=== PATIENT | female | born 1975 | race Caucasian/White ===

== ENCOUNTER 2023-03-22 07:29 | Outpatient (OUT) | payer MEDICARE, MEDICAID, SELFPAY ==
[2023-03-22 08:16] LABS: Microalbumin Urine Random <1.3 mg/dL (<=30.0)
[2023-03-22 08:26] LABS: Basophils Percent Auto 0.5 % (0.2-2.0); Eosinophils Absolute Auto 0.2 10^3/uL (0.0-0.7); Eosinophils Percent Auto 2.7 % (0.9-7.0); Hematocrit 41.4 % (36.0-48.0); Hemoglobin 13.5 g/dL (12.0-16.0); Immature Granulocytes Abs Auto 0.03 10^3/uL (0.00-0.03); Immature Granulocytes Pct Auto 0.5 % (0.0-0.5); Lymphocytes Absolute Auto 2.1 10^3/uL (1.2-3.8); Lymphocytes Percent Auto 31.6 % (20.5-60.0); Mean Corpuscular HGB Conc 32.6 g/dL (29.9-35.2); Mean Corpuscular Hemoglobin 28.1 pg (26.7-34.0); Mean Corpuscular Volume 86.1 fL (81.0-99.0); Mean Platelet Volume 9.9 fL (9.5-13.5); Monocytes Absolute Auto 0.4 10^3/uL (0.3-0.8); Monocytes Percent Auto 5.6 % (1.7-12.0); Neutrophils Absolute Auto 3.9 10^3/uL (1.4-6.5); Neutrophils Percent Auto 59.1 % (43.0-75.0); Platelet Count 258 10^3/uL (150-450); Red Blood Count 4.81 10^6/uL (4.20-5.40); Red Cell Distribution Width 14.1 % (11.0-15.0); White Blood Count 6.7 10^3/uL (4.0-11.0)
[2023-03-22 08:50] LABS: Alanine Aminotransferase 56 U/L (14-59); Albumin Globulin Ratio 0.9; Albumin Level 3.6 g/dL (3.4-5.0); Alkaline Phosphatase 95 U/L (46-116); Anion Gap 16.1; Aspartate Amino Transferase 49 U/L (15-37); BUN Creatinine Ratio 17.6; Bilirubin Direct 0.1 mg/dL (0.0-0.2); Bilirubin Total 0.3 mg/dL (0.2-1.0); Bilirubin Urine NEGATIVE (NEGATIVE); Blood Urine SMALL (NEGATIVE); Calcium 8.9 mg/dL (8.5-10.1); Carbon Dioxide 26.2 mmol/L (21.0-32.0); Chloride 104 mmol/L (98-107); Chol HDL Ratio 3.3; Cholesterol 131 mg/dL (<=200); Clarity Urine CLEAR (CLEAR); Color Urine LT. YELLOW (YELLOW); Estimated GFR (African America >60 (>=60); Estimated GFR (Non-African Ame >60 (>=60); Globulin 3.9 g/dL; Glucose 133 mg/dL (74-106); Glucose Urine UA NEGATIVE (NEGATIVE); HDL Cholesterol 40 mg/dL (40-60); Ketones Urine NEGATIVE (NEGATIVE); Leukocyte Esterase Urine NEGATIVE (NEGATIVE); Nitrite Urine NEGATIVE (NEGATIVE); Potassium 4.3 mmol/L (3.5-5.1); Protein Urine NEGATIVE (NEG/TRACE); Sodium 142 mmol/L (136-145); Thyroid Stimulating Hormone 3.429 uIU/mL (0.358-3.740); Total Protein 7.5 g/dL (6.4-8.2); Triglycerides 198 mg/dL (<=150); Urobilinogen Urine 0.2 EU/dL (0.2-1.0); VLDL CHOLESTEROL 39.6 mg/dL; pH Urine 6.5 (5.0-9.0)
[2023-03-22 09:05] LABS: Bacteria Urine SMALL #/HPF (NONE SEEN); Cast Seen? NONE SEEN #/LPF (NONE SEEN); Crystals Seen? None Seen #/HPF (None Seen); Mucus Urine NONE SEEN (NONE SEEN); Squamous Epithelial Cell Urine FEW #/LPF (NONE/RARE); WBC Urine 0-2 #/HPF (NONE SEEN)
[2023-03-23 13:19] LABS: Estimated Average Glucose 140 mg/dL; Glycohemoglobin A1C 6.5 % (4.5-6.2)
== END 2023-03-22 07:30 | disposition home or self-care (01) ==
LOC: LAB 07:34
PROVIDERS: PCP Family Medicine; Visit Provider Family Medicine
DX: E11.65 Type 2 diabetes mellitus with hyperglycemia (principal); Z79.899 Other long term (current) drug therapy; E66.9 Obesity, unspecified; E78.5 Hyperlipidemia, unspecified; R30.0 Dysuria
CPT/HCPCS: 36415; 80048; 80061; 80076; 81001; 82043; 83036; 84443; 85025; 87086

== ENCOUNTER 2023-09-29 12:41 | Outpatient (OUT) | payer MEDICARE, MEDICAID, SELFPAY ==
[2023-09-29 13:20] LABS: Estimated Average Glucose 166 mg/dL; Glycohemoglobin A1C 7.4 % (4.5-6.2)
== END 2023-09-29 12:42 | disposition home or self-care (01) ==
LOC: LAB 12:44
PROVIDERS: PCP Family Medicine; Visit Provider Family Medicine
DX: E11.65 Type 2 diabetes mellitus with hyperglycemia (principal)
CPT/HCPCS: 36415; 83036

== ENCOUNTER 2024-01-24 15:26 | Outpatient (OUT) | payer MEDICARE, MEDICAID, SELFPAY ==
--- OUTSIDE RECORDS SUMMARY | 2024-01-24 15:49 | XMS_ITS | CCD ---
Author Organization [facility] Care Team Providers Care Photoengraving Apprentice Name Role Phone Alex De La O Primary Care Provider EZIO LADNIN Referring Unavailable ALEX DE LA O Primary Care UnavailGustavo Wilson Unavailable JAIRON, DR ALEX Kennedy Attending Unavailable JAIRON, DR ALEX Kennedy Admitting Unavailable JAIRON, DR AELX Kennedy Primary Care Unavailable JAIRON, DR ALEX Kennedy Consulting Unavailable AUREAEREKaylee, DR ALEX Kennedy Attending Unavailable NADEREKaylee, DR ALEX Kennedy Admitting Unavailable NADEREKaylee, DR ALEX Kennedy Primary Care Unavailable JAIRON, DR ALEX Kennedy Consulting Unavailable JAIRON, DR ALEX Kennedy Attending Unavailable JAIRON, DR ALEX Kennedy Admitting Unavailable JAIRON, DR ALEX Kennedy Primary Care Unavailable MINE ., XENA Admitting Unavailable MINE ., XENA Attending Unavailable JEAN CLAUDE .PATRICK Consulting Unavailable JAIRON, DR ALEX Kennedy Primary Care Unavailable HORACE WELCH Consulting Unavailable Gail Reyes Unavailable Alex De La O MD Primary Care Provider [phone] ALEX DE LA O Attending Unavailable SAM PAYTON Attending Unavailable ALEX DE LA O Attending Unavailable Allergies Allergy Classification Reported Allergen(s) Allergy Type Date of Onset Reaction(s) Facility (1 source) Penicillins Propensity to adverse reactions to drug 09-17-2015 [facility] [place] Medications Current Medications Medication Drug Class(es) Dates Sig (Normalized) Sig (Original) atorvastatin 40 mg oral tablet (3 sources) HMG-CoA Reductase Inhibitor take 1 tablet by mouth at bedtime atorvastatin (Lipitor) 40 MG tablet Take 1 tablet by mouth at bedtime 0 Active azelastine hydrochloride 0.137 mg/actuat / fluticasone propionate 0.05 mg/actuat metered dose nasal spray (3 sources) Corticosteroid, Histamine-1 Receptor Antagonist Azelastine-Fluticaso ne 137-50 MCG/ACT Nasally Active calcium polycarbophil (3 sources) take 1 tablet by mouth at bedtime Calcium Polycarbophil (FIBER LAXATIVE PO) Take 1 tablet by mouth at bedtime 0 Active Calcium Polycarb ophil (FIBER-LAX PO) Take by mouth 0 Active cetirizine hydrochloride 10 mg oral tablet (6 sources) Histamine-1 Receptor Antagonist take 1 tablet by mouth in the morning cetirizine (ZyrTEC) 10 MG tablet Take 1 tablet by mouth in the morning. 0 Active docusate sodium 100 mg oral tablet (4 sources) Docusate Sodium 100 MG Orally Active Docusate Sodium 100 MG Orally Active take 1 capsule by mouth twice da pretty docusate sodium (COLACE) 100 MG capsule Take 100 mg by mouth 2 times daily 0 Active escitalopram 10 mg oral tablet (6 sources) Serotonin Reuptake Inhibitor take 1 tablet by mouth in the morning escitalopram (Lexapro) 10 MG tablet Take 1 tablet by mouth in the morning. 0 Active Ethinyl Estradiol / norgestimate (6 sources) Progestin, Estrogen take 1 tablet by mouth in the morning norgestimate-ethinyl estradiol (Ortho Tri-Cyclen LO) 0.18/0.215/0.25 MG-25 MCG tablet Take 1 tablet by mouth in the morning. 0 Active take 1 tablet by shreya th every twenty-four hours Tri-Sprintec 0.18/0.215/0.25 MG-35 MCG 1 tablet Orally daily Active Norgestim-Eth Es trad Triphasic 0.18/0.215/0.25 MG-35 MCG TABS Take by mouth 0 Active famotidine 40 mg oral tablet (2 sources) Histamine-2 Receptor Antagonist take 1 tablet by mouth in the morning famotidine (Pepcid) 40 MG tablet Take 1 tablet by mouth in the morning. 0 Active Fiber Laxative (3 sources) Fiber Laxative A ctive fluconazole 150 mg oral tablet (1 source) Azole Antifungal Start: 024 Diflucan 150 MG 1 tablet Orally once for 2 days Take 1 tablet p.o. today, take the second tablet by mouth in 3 days Aug, Active furosemide 20 mg oral tablet (6 sources) Loop Diuretic take 1 tablet by mouth in the morning furosemide (Lasix) 20 MG tablet Take 1 tablet by mouth in the morning. 0 Active glipiZIDE 10 mg oral tablet (5 sources) Sulfonylurea take 1 tablet by mouth in the morning glipiZIDE (Glucotrol) 10 MG tablet Take 1 tablet by mouth in the morning and 1 tablet in the evening. Take before meals. 0 Active hydrocortisone 25 mg/ml topical cream (2 sources) Corticosteroid hydrocortisone 2 .5 % cream Apply 1 application topically in the morning and 1 application before bedtime. 0 Active 12 hr hyoscyamine sulfate 0.375 mg extended release oral tablet (1 source) Start: take 1 tablet by mouth every twelve hours as needed hyoscyamine (LEVBID) 0.375 MG CR tablet Take 1 tablet by mouth every 12 hours as needed for Cramping 10 tablet 0 09/17/2015 Active metFORMIN hydrochloride 500 mg oral tablet (5 sources) Biguanide take 2 tablets by mouth in the morning metFORMIN (Glucophage) 500 MG tablet Take 2 tablets by mouth in the morning and 2 tablets in the evening. Take with meals. 0 Active take 1 tablet by shreya th every twenty-four hours metFORMIN HCl 500 MG 1 tablet with a meal Orally Once a day Active Multiple Vitamins-Minerals (CENTRUM WOMEN PO) (2 sources) take 1 tablet by mouth in the morning Multiple Vitamins-Minerals (CENTRUM WOMEN PO) Take 1 tablet by mouth in the morning. 0 Active Multiple Vitamins-Minerals (MULTIVITAL PO) (1 source) Multiple Vitamins-Minerals (MULTIVITAL PO) Take by mouth 0 Active Multivitamin Gummies Adults (3 sources) Multivitamin Gum mies Adults Orally Active Multivitamins (3 sources) Multivitamins Da pretty Active 24 hr oxybutynin chloride 15 mg extended release oral tablet (7 sources) Cholinergic Muscarinic Antagonist Start: take 1 tablet by mouth every twenty-four hours in the morning oxybutynin XL (Ditropan-XL) 15 MG 24 hr tablet Indications: Overactive bladder Take 1 tablet (15 mg) by mouth in the morning. Do not crush, chew, or split.. 30 tablet 5 09/29/2023 Active Start: 09-29-2023 take 1 tablet by shreya th every twenty-four hours in the morning oxybutynin XL (Ditropan-XL) 15 MG 24 hr tablet Indications: Overactive bladder Take 1 tablet (15 mg) by mouth in the morning. Do not crush, chew, or split.. 30 tablet 5 09/29/2023 Active End: 09-29-2023 take 1 tablet by mouth in the morning oxybutynin (Ditropan) 5 MG tablet Take 1 tablet by mouth in the morning and 1 tablet before bedtime. 0 09/29/2023 Discontinued oxyBUTYnin 5 mg Active Oxybutynin 5 mg Active pioglitazone 30 mg oral tablet (3 sources) Peroxisome Proliferator Receptor alpha Agonist, Peroxisome Proliferator Receptor gamma Agonist, Thiazolidinedione take 1 tablet by mouth in the morning pioglitazone (Actos) 30 MG tablet Take 1 tablet by mouth in the morning. 0 Active risperiDONE 0.25 mg oral tablet (8 sources) Atypical Antipsychotic take 1 tablet by mouth once daily at bedtime risperiDONE 0.25 MG 1 tablet Orally qhs Active take 1 tablet by shreya th every twelve hours risperiDONE 0.5 MG 1 tablet Orally bid Not-Taking/PRN traZODone hydrochloride 50 mg oral tablet (6 sources) Serotonin Reuptake Inhibitor take 0.5 tablet by mouth at bedtime traZODone (Desyrel) 50 MG tablet Take 0.5 tablets by mouth at bedtime 0 Active take 1 tablet by mouth once ahsan y traZODone (DESYREL) 50 MG tablet Take 50 mg by mouth nightly 0 Active Completed/Discontinued Medications Medication Drug Class(es) Dates Sig (Normalized) Sig (Original) acetaminophen 325 mg oral tablet (3 sources) take 1 tablet by mouth every six hours Acetaminophen 325 MG 1 tablet as needed Orally every 6 hrs Not-Taking/PRN amoxicillin 500 mg oral capsule (3 sources) Penicillin-class Antibacterial Start: 10-16-2014 take 1 capsule by mouth every twelve hours Amoxicillin 500 mg 1 Capsule Orally Twice a day for 10 days Sep, Not-Taking/PRN azelastine hydrochloride 0.5 mg/ml ophthalmic solution (4 sources) Histamine-1 Receptor Antagonist take 1 drop(s) into the eye(s) twice daily as needed Azelastine HCl 0.05 % 1 drop into affected eye Ophthalmic Twice a day Not-Taking/PRN take 1 drop(s) into the eye(s) twice daily Azelastine HCl 0.05 % 1 drop into affect ed eye Ophthalmic Twice a day Active take 1 spray(s) nasal route twic e daily azelastine (ASTELIN) 0.1 % nasal spray 1 spray by Nasal route 2 times daily Use in each nostril as directed 0 Active carbamide peroxide (3 sources) Carbamide Peroxi de 6.5 % Otic Not-Taking/PRN Carbamide Peroxi de 6.5 % Otic Active raNITIdine 150 mg oral tablet (3 sources) Histamine-2 Receptor Antagonist take 1 capsule by mouth twice daily as needed Ranitidine HCl 150 MG 1 capsule Orally Twice a day Not-Taking/PRN sulfamethoxazole 800 mg / trimethoprim 160 mg oral tablet (3 sources) Dihydrofolate Reductase Inhibitor Antibacterial, Sulfonamide Antimicrobial Start: 015 take 1 tablet by mouth every twelve hours Bactrim DS 800-160 MG 1 tablet Orally Twice a day for 7 day(s) Apr, Not-Taking/PRN triamcinolone acetonide 40 mg/ml injectable suspension (6 sources) Corticosteroid Start: 022 Kenalog-40 Mar, 40 mg take 2 spray(s) nasa l route in the morning triamcinolone (Nasacort) 55 MCG/ACT nasa l inhaler Administer 2 sprays into each nostril in the morning. 0 Active take 1 spray(s) nasal route once daily Nasacort AQ 55 MCG/ACT 1 spray in each nostril Nasally Once a day Active Problems Active Problems Problem Classification Problem Date Documented Da te Episodic/Chronic Developmental disorders (1 source) Unspecified intellectual disabilities; Translations: [UNSPEC INTELLECTUAL DISABILITIES] Onset: 2 Chronic Diabetes mellitus with complications (7 sources) Type 2 diabetes mellitus with hyperglycemia; Translations: [Type 2 diabetes mellitus] Onset: 3 Chronic Disorders of lipid metabolism (2 sources) Dyslipidemia; Translations: [Hyperlipidemia, unspecified] Onset: 4 09-29-2023 Chronic Esophageal disorders (3 sources) Gastroesophageal reflux disease without esophagitis; Translations: [Gastro-esophageal reflux disease without esophagitis] Onset: 4 09-29-2023 Chronic Other diseases of bladder and urethra (3 sources) Overactive bladder; Translations: [Overactive bladder] Onset: 4 09-29-2023 Chronic Other female genital disorders (2 sources) Abnormal uterine bleeding; Translations: [Abnormal uterine and vaginal bleeding, unspecified] Onset: 4 09-29-2023 Chronic Other gastrointestinal disorders (2 sources) Chronic constipation; Translations: [Other constipation] Onset: 4 09-29-2023 Episodic Other nutritional; endocrine; and metabolic disorders (1 source) Obesity, unspecified; Translations: [OBESITY UNSPECIFIED] Onset: 2 Chronic Other nutritional; endocrine; and metabolic disorders (2 sources) Body mass index 30+ - obesity; Translations: [Obesity, unspecified] Onset: 4 09-29-2023 Chronic Other upper respiratory disease (3 sources) Allergic rhinitis due to pollen; Translations: [Allergic rhinitis due to pollen] Onset: 4 09-29-2023 Chronic Personality disorders (2 sources) 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; 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] Onset: 4 09-29-2023 Chronic Residual codes; unclassified (3 sources) Amnesia; Translations: [Other amnesia] Onset: 4 09-29-2023 Episodic Residual codes; unclassified (3 sources) Edema of lower extremity; Translations: [Localized edema] Onset: 4 09-29-2023 Episodic Past or Other Problems Problem Classification Problem Date Documented Da te Episodic/Chronic Conditions associated with dizziness or vertigo (4 sources) Dizziness and giddiness; Translations: [DIZZINESS AND GIDDINESS] Onset: 03-23-2022 Episodic E Codes: Fall (1 source) Fall on same level, unspecified, initial encounter; Translations: [FALL SAME LEVEL UNSPECIFIED INITIAL] Onset: 03-25-2022 Episodic Genitourinary symptoms and ill-defined conditions (3 sources) Dysuria; Translations: [Dysuria] Onset: 09-29-2023 Resolved: 09-29-2023 Episodic Other aftercare (1 source) Other residential (current) drug therapy; Translations: [OTH 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 MECHANICAL ESTIMATOR CURRENT DRUG THERAPY] Onset: 03-25-2022 Episodic Other connective tissue disease (2 sources) Impingement syndrome of left shoulder Onset: 03-29-2022 Resolved: 05-10-2022 Episodic Other connective tissue disease (2 sources) Other enthesopathies, not elsewhere classified Onset: 03-29-2022 Resolved: 05-10-2022 Episodic Other injuries and conditions due to external causes (1 source) Other specified injuries of head, initial encounter; Translations: [OTH SPEC INJURIES HEAD INITIAL ENC] Onset: 03-25-2022 Episodic Other non-traumatic joint disorders (1 source) Pain in left shoulder; Translations: [PAIN IN LEFT SHOULDER] Onset: 03-25-2022 Episodic Sprains and strains (1 source) Unspecified sprain of left shoulder joint, initial encounter; Translations: [UNS SPRAIN LT SHOULDER JOINT INIT] Onset: 03-25-2022 Episodic Unclassified (1 source) Vaginal candidiasis B37.31 Results Test Name Value Interpretation Reference Range Facility [facility] HEMOGLOBIN A1Con 024 Glucose [Mass/Vol] 166 mg/dL [facility] HbA1c (Bld) [Mass fraction] 7.4 % High 4.5 - 6.2 % [facility] Comment on above: ADA RECOMMENDED LIMI T 4.0 - 6.0 ADA THERAPEUTIC TARGET < 7.0 ACTION SUGGESTED > 7.0 Interpretation and review of laboratory results Abnormal [facility] e Urinalysis - AUTOMATEDon Appearance (U) clear [employer] Other Bilirubin Ql (U) Negative [employer]gall Other Color (U) yellow [facility] Other Glucose Ql (U) Negative [employer] Other Hemoglobin Ql (U) Negative [employer] Other Ketones Ql (U) trace [employer] Other Leukocyte esterase Test strip Ql (U) Negative [facility] Other Nitrite Ql (U) Negative [employer] Other pH (U) 5.5 [pH] [facility] Other Protein Ql (U) Negative [employer] Other Specific gravity (U) [Rel density] 1.025 [facility] Other Urobilinogen (U) [Mass/Vol] 0.2 mg/dL [facility] Other Urinalysis - AUTOMATED [facility] Other GLYCOHEMOGLOBIN A1Con 2022 ADA RECOMMENDATION SEE BELOW Normal [facility] Comment on above: Result Comment: ADA RECOMMENDED LIMIT 4.0 - 6.0 ADA THERAPEUTIC TARGET < 7.0 ACTION SUGGESTED > 7.0 Performed By: #### L IPID, TSH, ALT, BMP, AST #### [facility] [address] [place] [address] Dr. Linda Shabazz Glucose [Mass/Vol] 146 mg/dL Normal [facility] Comment on above: Performed By: #### L IPID, TSH, ALT, BMP, AST #### [facility] [address] [place] [address] Dr. Linda Shabazz HbA1c (Bld) [Mass fraction] 6.7 % Critically high 4.5-6.2 [facility] Comment on above: Performed By: #### L IPID, TSH, ALT, BMP, AST #### [facility] [address] [place] [address] Dr. Linda Shabazz CBC AUTO DIFFon 03-23-2022 BASO # 0.0 103/ul Normal 0.0-0.1 [facility] Comment on above: Performed By: #### C BC #### [facility] [address] [place] [address] Dr. Linda Shabazz Basophils/100 WBC (Bld) 0.3 % Normal 0.2-2.0 [facility] Comment on above: Performed By: #### C BC #### [facility] [address] [place] [address] Dr. Linda Shabazz EO # 0.2 103/ul Normal 0.0-0.7 [facility] Comment on above: Performed By: #### C BC #### [facility] [address] [address] [address] Linda Shabazz Eosinophils/100 WBC (Bld) 1.8 % Normal 0.9-7.0 [facility] Comment on above: Performed By: #### C BC #### [facility] [address] [place] [address] Dr. Linda Shabazz Erythrocyte distribution width (RBC) [Ratio] 13.9 % Normal 11.0-15.0 [facility] Comment on above: Performed By: #### C BC #### [facility] [address] [place] [address] Dr. Linda Shabazz Hematocrit (Bld) [Volume fraction] 39.9 % Normal 36.0-48.0 [facility] Comment on above: Performed By: #### C BC #### [facility] [address] [place] [address] Dr. Linda Shabazz Hemoglobin (Bld) [Mass/Vol] 13.2 g/dL Normal 12.0-16.0 [facility] Comment on above: Performed By: #### C BC #### [facility] [address] [place] [address] Dr. Linda Shabazz IG # 0.05 10e3/ul Critically high 0.00-0.03 [facility] Comment on above: Performed By: #### C BC #### [facility] [address] [place] [address] Dr. Linda Shabazz IG % 0.6 % Critically high 0.0-0.5 [facility] Comment on above: Performed By: #### C BC #### [facility] [address] [place] [address] Dr. Linda Shabazz LYMPH # 1.2 103/ul Normal 1.2-3.8 [facility] Comment on above: Performed By: #### C BC #### [facility] [address] [place] [address] Dr. Linda Shabazz Lymphocytes/100 WBC (Bld) 14.2 % Critically low 20.5-60.0 [facility] Comment on above: Performed By: #### C BC #### [facility] [address] [address] [address] Linda Shabazz MANUAL DIFF REQ NO Normal [facility] Comment on above: Performed By: #### C BC #### [facility] [address] [place] [address] Dr. Linda Shabazz MCH (RBC) [Entitic mass] 28.7 pg Normal 26.7-34.0 [facility] Comment on above: Performed By: #### C BC #### [facility] [address] [place] [address] Dr. Linda Shabazz MCHC (RBC) [Mass/Vol] 33.1 g/dL Normal 29.9-35.2 [facility] Comment on above: Performed By: #### C BC #### [facility] [address] [place] [address] Dr. Linda Shabazz MCV (RBC) [Entitic vol] 86.7 fL Normal 81.0-99.0 [facility] Comment on above: Performed By: #### C BC #### [facility] [address] [place] [address] Dr. Linda Shabazz MONO # 0.6 103/ul Normal 0.3-0.8 [facility] Comment on above: Performed By: #### C BC #### [facility] [address] [place] [address] Dr. Linda Shabazz Monocytes/100 WBC (Bld) 7.3 % Normal 1.7-12.0 [facility] Comment on above: Performed By: #### C BC #### [facility] [address] [place] [address] Dr. Linda Shabazz NEUT # 6.6 103/ul Critically high 1.4-6.5 [facility] Comment on above: Performed By: #### C BC #### [facility] [address] [place] [address] Dr. Linda Shabazz Neutrophils/100 WBC (Bld) 75.8 % Critically high 43.0-75.0 [facility] Comment on above: Performed By: #### C BC #### [facility] [address] [place] [address] Dr. Linda Shabazz Platelet mean volume (Bld) [Entitic vol] 9.6 fL Normal 9.5-13.5 [facility] Comment on above: Performed By: #### C BC #### [facility] [address] [place] [address] Dr. Linda Shabazz PLT 223 103/ul Normal 150-450 [facility] Comment on above: Performed By: #### C BC #### [facility] [address] [place] [address] Dr. Linda Shabazz RBC 4.60 106/ul Normal 4.20-5.40 [facility] Comment on above: Performed By: #### C BC #### [facility] [address] [place] [address] Dr. Linda Shabazz WBC 8.7 103/ul Normal 4.0-11.0 [facility] Comment on above: Performed By: #### C BC #### [facility] [address] [place] [address] HEAD WO CONon 03-23-2022 CT HEAD WO CON EXAMINATION: CT HEAD WO CON HISTORY: HEADACHE and dizziness and a 46-year-old who fell 2 days ago with a head injury. COMPARISON: None. TECHNIQUE: CT examination of the head without IV contrast. Sagittal and coronal reconstructions were obtained. Dose reduction techniques were achieved by using automated exposure control and/or adjustment of mA and/or kV according to patient size and/or use of iterative reconstruction technique. FINDINGS: The ventricles are near the upper limits of normal in size, the lateral ventricles are symmetric and the third ventricles in the midline. The sylvian fissures and cortical sulci are unremarkable. There is no evidence of an intracranial hemorrhage, mass lesion or apparent acute infarct. No focal abnormality is identified in the deep white matter. Benign calcifications are seen in the choroid plexus and pineal complex. The cerebellum and visualized brainstem are intact. The visualized paranasal sinuses are clear. The middle ears and mastoid sinuses are clear. There is no apparent skull fracture. IMPRESSION: There is no evidence of an intracranial hemorrhage, mass lesion or apparent acute infarct in this noncontrast study. The visualized sinuses are clear, and there is no apparent skull fracture. Direct comparison with a previous study would be helpful in confirming the chronicity of these findings. Electronically authenticated by: HORACE WELCH Date: 2022-03-23 15:37 Normal [facility] PROF 14(COMP METB)on 022 Albumin [Mass/Vol] 3.7 g/dL Normal 3.4-5.0 [facility] Comment on above: Performed By: #### L IPID, TSH, ALT, BMP, AST #### [facility] [address] [address] [address] Linda Shabazz Albumin/Globulin [Mass ratio] 1.0 {ratio} Normal [facility] Comment on above: Performed By: #### L IPID, TSH, ALT, BMP, AST #### [facility] [address] [place] [address] Dr. Linda Shabazz ALP [Catalytic activity/Vol] 83 U/L Normal 46-116 [facility] Comment on above: Performed By: #### L IPID, TSH, ALT, BMP, AST #### [facility] [address] [place] [address] Dr. Linda Shabazz ALT [Catalytic activity/Vol] 26 U/L Normal 14-59 [facility] Comment on above: Performed By: #### L IPID, TSH, ALT, BMP, AST #### [facility] [address] [place] [address] Dr. Linda Shabazz Anion gap [Moles/Vol] 18.1 mmol/L Normal [facility] Comment on above: Performed By: #### L IPID, TSH, ALT, BMP, AST #### [facility] [address] [place] [address] Dr. Linda Shabazz AST [Catalytic activity/Vol] 22 U/L Normal 15-37 [facility] Comment on above: Performed By: #### L IPID, TSH, ALT, BMP, AST #### [facility] [address] [place] [address] Dr. Linda Shabazz Bilirubin [Mass/Vol] 0.3 mg/dL Normal 0.2-1.0 [facility] Comment on above: Performed By: #### L IPID, TSH, ALT, BMP, AST #### [facility] [address] [place] [address] Dr. Linda Shabazz Calcium [Mass/Vol] 9.2 mg/dL Normal 8.5-10.1 [facility] Comment on above: Performed By: #### L IPID, TSH, ALT, BMP, AST #### [facility] [address] [place] [address] Dr. Linda Shabazz Chloride [Moles/Vol] 104 mmol/L Normal 98-107 [facility] Comment on above: Performed By: #### L IPID, TSH, ALT, BMP, AST #### [facility] [address] [place] [address] Dr. Linda Shabazz CO2 [Moles/Vol] 24.0 mmol/L Normal 21.0-32.0 [facility] Comment on above: Performed By: #### L IPID, TSH, ALT, BMP, AST #### [facility] [address] [place] [address] Dr. Linda Shabazz Creatinine [Mass/Vol] 0.65 mg/dL Normal 0.55-1.02 [facility] Comment on above: Performed By: #### L IPID, TSH, ALT, BMP, AST #### [facility] [address] [place] [address] Dr. Linda Shabazz EGFR-AF IVORIAN >60 Normal >=60 [facility] Comment on above: Performed By: #### L IPID, TSH, ALT, BMP, AST #### [facility] [address] [place] [address] Dr. Linda Shabazz EGFR-NON AF IVORIAN >60 Normal >=60 [facility] Comment on above: Performed By: #### L IPID, TSH, ALT, BMP, AST #### [facility] [address] [place] [address] Dr. Linda Shabazz Globulin (S) [Mass/Vol] 3.6 g/dL Normal [facility] Comment on above: Performed By: #### L IPID, TSH, ALT, BMP, AST #### [facility] [address] [address] [address] Linda Shabazz Glucose [Mass/Vol] 91 mg/dL Normal 74-106 [facility] Comment on above: Performed By: #### L IPID, TSH, ALT, BMP, AST #### [facility] [address] [place] [address] Dr. Linda Shabazz Potassium [Moles/Vol] 4.1 mmol/L Normal 3.5-5.1 [facility] Comment on above: Performed By: #### L IPID, TSH, ALT, BMP, AST #### [facility] [address] [address] [address] Linda Shabazz Protein [Mass/Vol] 7.3 g/dL Normal 6.4-8.2 [facility] Comment on above: Performed By: #### L IPID, TSH, ALT, BMP, AST #### [facility] [address] [place] [address] Dr. Linda Shabazz Sodium [Moles/Vol] 142 mmol/L Normal 136-145 [facility] Comment on above: Performed By: #### L IPID, TSH, ALT, BMP, AST #### [facility] [address] [address] [address] Linda Shabazz Urea nitrogen [Mass/Vol] 9.0 mg/dL Normal 7.0-18.0 [facility] Comment on above: Performed By: #### L IPID, TSH, ALT, BMP, AST #### [facility] [address] [place] [address] Dr. Linda Shabazz Urea nitrogen/Creatinine [Mass ratio] 13.8 mg/mg Normal [facility] Comment on above: Performed By: #### L IPID, TSH, ALT, BMP, AST #### [facility] [address] [place] [address] Dr. Linda Shabazz TROPONIN, HIGH SENSITIVITYon 03-23-2022 HSTROP <4.0 Normal 4.0-51.3 [facility] Comment on above: Result Comment: CUT- OFF POINTS HAVE BEEN ESTABLISHED BASED ON THE FOURTH UNIVERSAL DEFINITIONS OF MYOCARDIAL INFARCTION. THE UPPER REFERENCE LIMIT (URL) OF TROPONIN, DEFINED THE 99TH PERCENTILE OF cTnI DISTRIBUTION IN A REFERENCE POPULATION, HAS BEEN CONFIRMED THE DECISION THRESHOLD FOR DC DIAGNOSIS. Performed By: #### L IPID, TSH, ALT, BMP, AST #### [facility] [address] [place], [place] [address] Dr. Linda Shabazz XR CHEST 2 Von 03-23-2022 XR CHEST 2 V EXAM: XR CHEST 2 V HISTORY: COUGH and pain in the right shoulder for the past day. COMPARISON: None. TECHNIQUE: Upright PA and lateral chest x-ray FINDINGS: The heart is not enlarged and the vasculature is not distended. No acute infiltrate, effusion or pneumothorax is identified. The osseous structures are grossly intact. IMPRESSION: No acute infiltrate or evidence of cardiac decompensation. Comparison with a previous study may be helpful. Electronically authenticated by: HORACE WELCH Date: 2022-03-23 14:00 Normal [facility] XR SHOULDER LT 2V or >on XR SHOULDER LT 2V or > EXAM: XR SHOULDER LT 2V or > HISTORY: Pain for the past day. COMPARISON: None. TECHNIQUE: 3 views of the left shoulder were obtained. FINDINGS: There is no evidence of an acute fracture or dislocation. The joint spaces appear relatively intact. There is an oval calcification seen above the humeral head near the insertion site of the rotator cuff. No other soft tissue calcifications are identified. IMPRESSION: No acute fracture, dislocation or significant degenerative change. There is an element of calcific tendinitis involving the rotator cuff. Electronically authenticated by: HORACE WELCH Date: 2022-03-23 14:12 Normal [facility] CBC AUTO DIFFon 02-09-2022 BASO # 0.0 103/ul Normal 0.0-0.1 [facility] Comment on above: Performed By: #### C BC #### [facility] [address] [place], [place] [address] Dr. Linda Shabazz Basophils/100 WBC (Bld) 0.3 % Normal 0.2-2.0 [facility] Comment on above: Performed By: #### C BC #### [facility] [address] [place], [place] [address] Dr. Linda Shabazz EO # 0.1 103/ul Normal 0.0-0.7 [facility] Comment on above: Performed By: #### C BC #### [facility] [address] [address] [address] Linda Shabazz Eosinophils/100 WBC (Bld) 1.7 % Normal 0.9-7.0 [facility] Comment on above: Performed By: #### C BC #### [facility] [address] [place] [address] Dr. Linda Shabazz Erythrocyte distribution width (RBC) [Ratio] 14.2 % Normal 11.0-15.0 [facility] Comment on above: Performed By: #### C BC #### [facility] [address] [place] [address] Dr. Linda Shabazz Hematocrit (Bld) [Volume fraction] 40.5 % Normal 36.0-48.0 [facility] Comment on above: Performed By: #### C BC #### [facility] [address] [place] [address] Dr. Linda Shabazz Hemoglobin (Bld) [Mass/Vol] 12.7 g/dL Normal 12.0-16.0 [facility] Comment on above: Performed By: #### C BC #### [facility] [address] [place] [address] Dr. Linda Shabazz IG # 0.06 10e3/ul Critically high 0.00-0.03 [facility] Comment on above: Performed By: #### C BC #### [facility] [address] [place] [address] Dr. Linda Shabazz IG % 0.9 % Critically high 0.0-0.5 [facility] Comment on above: Performed By: #### C BC #### [facility] [address] [place] [address] Dr. Linda Shabazz LYMPH # 1.9 103/ul Normal 1.2-3.8 [facility] Comment on above: Performed By: #### C BC #### [facility] [address] [place] [address] Dr. Linda Shabazz Lymphocytes/100 WBC (Bld) 26.9 % Normal 20.5-60.0 [facility] Comment on above: Performed By: #### C BC #### [facility] [address] [place] [address] Dr. Linda Shabazz MANUAL DIFF REQ NO Normal [facility] Comment on above: Performed By: #### C BC #### [facility] [address] [place] [address] Dr. Linda Shabazz MCH (RBC) [Entitic mass] 28.0 pg Normal 26.7-34.0 [facility] Comment on above: Performed By: #### C BC #### [facility] [address] [place] [address] Dr. Linda Shabazz MCHC (RBC) [Mass/Vol] 31.4 g/dL Normal 29.9-35.2 [facility] Comment on above: Performed By: #### C BC #### [facility] [address] [place] [address] Dr. Linda Shabazz MCV (RBC) [Entitic vol] 89.2 fL Normal 81.0-99.0 [facility] Comment on above: Performed By: #### C BC #### [facility] [address] [place] [address] Dr. Linda Shabazz MONO # 0.4 103/ul Normal 0.3-0.8 [facility] Comment on above: Performed By: #### C BC #### [facility] [address] [place] [address] Dr. Linda Shabazz Monocytes/100 WBC (Bld) 6.1 % Normal 1.7-12.0 [facility] Comment on above: Performed By: #### C BC #### [facility] [address] [place] [address] Dr. Linda Shabazz NEUT # 4.5 103/ul Normal 1.4-6.5 [facility] Comment on above: Performed By: #### C BC #### [facility] [address] [place] [address] Dr. Linda Shabazz Neutrophils/100 WBC (Bld) 64.1 % Normal 43.0-75.0 [facility] Comment on above: Performed By: #### C BC #### [facility] [address] [place] [address] Dr. Linda Shabazz Platelet mean volume (Bld) [Entitic vol] 10.1 fL Normal 9.5-13.5 [facility] Comment on above: Performed By: #### C BC #### [facility] [address] [place] [address] Dr. Linda Shabazz PLT 283 103/ul Normal 150-450 [facility] Comment on above: Performed By: #### C BC #### [facility] [address] [place] [address] Dr. Linda Shabazz RBC 4.54 106/ul Normal 4.20-5.40 [facility] Comment on above: Performed By: #### C BC #### [facility] [address] [place] [address] Dr. Linda Shabazz WBC 7.0 103/ul Normal 4.0-11.0 [facility] Comment on above: Performed By: #### C BC #### [facility] [address] [place] [address] Dr. Linda Shabazz GLYCOHEMOGLOBIN A1Con 2021 ADA RECOMMENDATION SEE BELOW Normal [facility] Comment on above: Result Comment: ADA RECOMMENDED LIMIT 4.0 - 6.0 ADA THERAPEUTIC TARGET < 7.0 ACTION SUGGESTED > 7.0 Performed By: #### L IPID, TSH, ALT, BMP, AST #### [facility] [address] [place] [address] Dr. Linda Shabazz Glucose [Mass/Vol] 146 mg/dL Normal [facility] Comment on above: Performed By: #### L IPID, TSH, ALT, BMP, AST #### [facility] [address] [place] [address] Dr. Linda Shabazz HbA1c (Bld) [Mass fraction] 6.7 % Critically high 4.5-6.2 [facility] Comment on above: Performed By: #### L IPID, TSH, ALT, BMP, AST #### [facility] [address] [place] [address] Dr. Linda Shabazz LIPID PROFILEon 02-09-2022 CHOL-HDL RATIO NORM SEE BELOW Normal [facility] Comment on above: Result Comment: 3.3 - 4.4 LOW RISK 4.4 - 7.1 AVERAGE RISK 7.1 - 11.0 MODERATE RISK >11.0 HIGH RISK Performed By: #### L IPID, TSH, ALT, BMP, AST #### [facility] [address] [address] [address] Linda Shabazz Cholesterol [Mass/Vol] 130 mg/dL Normal <=200 [facility] Comment on above: Performed By: #### L IPID, TSH, ALT, BMP, AST #### [facility] [address] [address] [address] Linda Shabazz Cholesterol in HDL [Mass/Vol] 38 mg/dL Critically low 40-60 [facility] Comment on above: Performed By: #### L IPID, TSH, ALT, BMP, AST #### [facility] [address] [address] [address] Linda Shabazz Cholesterol in LDL [Mass/Vol] 51.0 mg/dL Normal [facility] Comment on above: Performed By: #### L IPID, TSH, ALT, BMP, AST #### [facility] [address] [address] [address] Linda Shabazz Cholesterol.total/Ch olesterol in HDL [Mass ratio] 3.4 {ratio} Normal [facility] Comment on above: Performed By: #### L IPID, TSH, ALT, BMP, AST #### [facility] [address] [address] [address] Linda Shabazz HDL NORMAL > or = 60 mg/dl - LOW CARDIOVASCULAR RISK <40 mg/dl - HIGH CARDIOVASCULAR RISK Normal [facility] Comment on above: Performed By: #### L IPID, TSH, ALT, BMP, AST #### [facility] [address] [place] [address] Dr. Linda Shabazz LDL CALC NORMAL SEE BELOW Normal [facility] Comment on above: Result Comment: <100 mg/dl OPTIMAL 100 - 129 mg/dl NEAR OR ABOVE OPTIMAL 130 - 159 mg/dl BORDERLINE HIGH 160 - 189 mg/dl HIGH >190 mg/dl VERY HIGH Performed By: #### L IPID, TSH, ALT, BMP, AST #### [facility] [address] [place] [address] Dr. Linda Shabazz Triglyceride [Mass/Vol] 205 mg/dL Critically high <=150 [facility] Comment on above: Performed By: #### L IPID, TSH, ALT, BMP, AST #### [facility] [address] [address] [address] Linda Shabazz VLDL CALC 41.0 mg/dL Normal [facility] Comment on above: Performed By: #### L IPID, TSH, ALT, BMP, AST #### [facility] [address] [place] [address] Dr. Linda Shabazz MICROALBUMIN, RAND URon - mALB <1.3 Normal <=30.0 [facility] Comment on above: Performed By: #### L IPID, TSH, ALT, BMP, AST #### [facility] [address] [place] [address] Dr. Linda Shabazz PROF CHEM 8 (BAS METB)on Anion gap [Moles/Vol] 11.9 mmol/L Normal [facility] Comment on above: Performed By: #### L IPID, TSH, ALT, BMP, AST #### [facility] [address] [place] [address] Dr. Linda Shabazz Calcium [Mass/Vol] 8.9 mg/dL Normal 8.5-10.1 [facility] Comment on above: Performed By: #### L IPID, TSH, ALT, BMP, AST #### [facility] [address] [place] [address] Dr. Linda Shabazz Chloride [Moles/Vol] 106 mmol/L Normal 98-107 [facility] Comment on above: Performed By: #### L IPID, TSH, ALT, BMP, AST #### [facility] [address] [place] [address] Dr. Linda Shabazz CO2 [Moles/Vol] 27.5 mmol/L Normal 21.0-32.0 [facility] Comment on above: Performed By: #### L IPID, TSH, ALT, BMP, AST #### [facility] [address] [address] [address] Linda Shabazz Creatinine [Mass/Vol] 0.69 mg/dL Normal 0.55-1.02 [facility] Comment on above: Performed By: #### L IPID, TSH, ALT, BMP, AST #### [facility] [address] [address] [address] Linda Shabazz EGFR-AF IVORIAN >60 Normal >=60 [facility] Comment on above: Performed By: #### L IPID, TSH, ALT, BMP, AST #### [facility] [address] [place] [address] Dr. Linda Shabazz EGFR-NON AF IVORIAN >60 Normal >=60 [facility] Comment on above: Performed By: #### L IPID, TSH, ALT, BMP, AST #### [facility] [address] [address] [address] Linda Shabazz Glucose [Mass/Vol] 198 mg/dL Critically high 74-106 [facility] Comment on above: Performed By: #### L IPID, TSH, ALT, BMP, AST #### [facility] [address] [place] [address] Dr. Linda Shabazz Potassium [Moles/Vol] 4.4 mmol/L Normal 3.5-5.1 [facility] Comment on above: Performed By: #### L IPID, TSH, ALT, BMP, AST #### [facility] [address] [place] [address] Dr. Linda Shabazz Sodium [Moles/Vol] 141 mmol/L Normal 136-145 [facility] Comment on above: Performed By: #### L IPID, TSH, ALT, BMP, AST #### [facility] [address] [place] [address] Dr. Linda Shabazz Urea nitrogen [Mass/Vol] 9.0 mg/dL Normal 7.0-18.0 [facility] Comment on above: Performed By: #### L IPID, TSH, ALT, BMP, AST #### [facility] [address] [place] [address] Dr. Linda Shabazz Urea nitrogen/Creatinine [Mass ratio] 13.0 mg/mg Normal [facility] Comment on above: Performed By: #### L IPID, TSH, ALT, BMP, AST #### [facility] [address] [place] [address] Dr. Linda Shabazz SGOTon 02-09-2022 AST [Catalytic activity/Vol] 12 U/L Critically low 15-37 [facility] Comment on above: Performed By: #### L IPID, TSH, ALT, BMP, AST #### [facility] [address] [place] [address] Dr. Linda Shabazz SGPTon 02-09-2022 ALT [Catalytic activity/Vol] 25 U/L Normal 14-59 [facility] Comment on above: Performed By: #### L IPID, TSH, ALT, BMP, AST #### [facility] [address] [place] [address] Dr. Linda Shabazz TSHon 02-09-2022 TSH 2.110 uIU/mL Normal 0.358-3.[address] [facility] Comment on above: Performed By: #### L IPID, TSH, ALT, BMP, AST #### [facility] [address] [place] [address] Dr. Linda Shabazz Hemoglobin A1Con 05-21-2020 HbA1c (Bld) [Mass fraction] 8.1 % High 4.0-6.0 [facility] Comment on above: Performed By: #### G LYHGB, PROL, LIPR #### [facility] [address] [place] [address] Lace Weaver: Grant Betancourt MD #### BMP, CDP #### [facility] [address] [place] [address] Lace Weaver: Jhonatan Shelton MD HbA1c (Bld) [Mass fraction] 186 mg/dL Normal [facility] Comment on above: Result Comment: The ADA and AACC recommend providing the estimated average glucose result to permit better patient understanding of their HBA1c result. Performed By: #### G LYHGB, PROL, LIPR #### [facility] [employer] [address] [place] [address] Lace Weaver: Grant Betancourt MD #### BMP, CDP #### [facility] [address] [place] [address] Lace Weaver: Jhonatan Shelton MD Basic Metabolic Panelon 04-29 Anion gap [Moles/Vol] 14 mmol/L 9 - 17 mmol/L [place] Bun/Cre Ratio 14 [place], [place] Calcium [Mass/Vol] 9.3 mg/dL 8.6 - 10. 4 mg/dL [place] Chloride [Moles/Vol] 103 mmol/L 98 - 10 7 mmol/L [place] CO2 [Moles/Vol] 22 mmol/L 20 - 31 mmol/L [place] Creatinine [Mass/Vol] 0.58 mg/dL 0.5 - 0.9 mg/dL [place] GFR >60 >60 mL/min [place], [place] GFR Non- >60 >60 mL/min [place] Glucose [Mass/Vol] 210 mg/dL High 70 - 99 mg/dL [place], [place] Interpretation and review of laboratory results Abnormal [place] Potassium [Moles/Vol] 4.2 mmol/L 3.7 - 5.3 mmol/L [place] Sodium [Moles/Vol] 139 mmol/L 135 - 144 mmol/L [place] Urea nitrogen [Mass/Vol] 8 mg/dL 6 - 20 mg/dL [place] Basic Metabolic Profon 05-19 (cont.) Normal [facility] Comment on above: Result Comment: Aver age GFR for 40-49 years old: 99 mL/min/1.73sq m Chronic Kidney Disease: <60 mL/min/1.73sq m Kidney failure: <15 mL/min/1.73sq m eGFR calculated using average adult body mass. Additional eGFR calculator available at: http://www.[employer].com/multiple_crcl_2012.htm Performed By: #### G LYHGB, PROL, LIPR #### [facility] [address] [place] [address] Lace Weaver: Grant Betancourt MD #### BMP, CDP #### [address] [place], [place] [id number] Lace Weaver: Jhonatan Shelton MD Anion gap [Moles/Vol] 14 mmol/L Normal 9-17 [facility] Comment on above: Performed By: #### G LYHGB, PROL, LIPR #### [address] [address] Lace Weaver: Grant Betancourt MD #### BMP, CDP #### [address] [place] [id number] Lace Weaver: Jhonatan Shelton MD BUN/CRE Ratio 14 Normal 9-20 [facility] Comment on above: Performed By: #### G LYHGB, PROL, LIPR #### [address] [address] Lace Weaver: Grant Betancourt MD #### BMP, CDP #### [address] [place], [place] [id number] Lace Weaver: Jhonatan Shetlon MD Calcium [Mass/Vol] 9.3 mg/dL Normal 8.6-10.4 [facility] Comment on above: Performed By: #### G LYHGB, PROL, LIPR #### [address] [address] Lace Weaver: Grant Betancourt MD #### BMP, CDP #### [address] [place], [place] [id number] Lace Weaver: Jhonatan Shelton MD Chloride [Moles/Vol] 103 mmol/L Normal 98-107 [facility] Comment on above: Performed By: #### G LYHGB, PROL, LIPR #### [address] [address] Lace Weaver: Grant Betancourt MD #### BMP, CDP #### [facility] [address] [place], [place] [id number] Lace Weaver: Jhonatna Shelton MD CO2 [Moles/Vol] 22 mmol/L Normal 20-31 [facility] Comment on above: Performed By: #### G LYHGB, PROL, LIPR #### [address] [address] Lace Weaver: Grant Betancourt MD #### BMP, CDP #### [facility] [address] [place], [place] [id number] Lace Weaver: Jhonatan Shelton MD Creatinine [Mass/Vol] 0.58 mg/dL Normal 0.50-0.90 [facility] Comment on above: Performed By: #### G LYHGB, PROL, LIPR #### [address] [address] Lace Weaver: Grant Betancourt MD #### BMP, CDP #### [facility] [address] [place], [place] [id number] Lace Weaver: Jhonatan Shelton MD GFR, Amer >60 Normal >60 [facility] Comment on above: Performed By: #### G LYHGB, PROL, LIPR #### [address] [address] Lace Weaver: Grant Betancourt MD #### BMP, CDP #### [facility] [address] [place], [place] [id number] Lace Weaver: Jhonatan Shelton MD GFR,non Amer >60 Normal >60 [facility] Comment on above: Performed By: #### G LYHGB, PROL, LIPR #### [address] [place] [address] Lace Weaver: Grant Betancourt MD #### BMP, CDP #### [facility] [address] [place], [place] [id number] Lace Weaver: Jhonatan Shelton MD Glucose [Mass/Vol] 210 mg/dL High 70-99 [facility] Comment on above: Performed By: #### G LYHGB, PROL, LIPR #### [address] [address] Lace Weaver: Grant Betancourt MD #### BMP, CDP #### [address] [place], [place] [id number] Lace Weaver: Jhonatan Shelton MD Potassium [Moles/Vol] 4.2 mmol/L Normal 3.7-5.3 [facility] Comment on above: Performed By: #### G LYHGB, PROL, LIPR #### [address] [address] Lace Weaver: Grant Betancourt MD #### BMP, CDP #### [address] [place], [place] [id number] Lace Weaver: Jhonatan Shelton MD Sodium [Moles/Vol] 139 mmol/L Normal 135-144 [facility] Comment on above: Performed By: #### G LYHGB, PROL, LIPR #### [address] [address] Lace Weaver: Grant Betancourt MD #### BMP, CDP #### [address] [place], [place] [id number] Lace Weaver: Jhonatan Shelton MD Staging: Normal [facility] Comment on above: Result Comment: Stag e 1: Some kidney damage normal GFR Stage 2: Mild kidney damage GFR 60-89 Stage 3: Moderate kidney damage GFR 30-59 Stage 4: Severe kidney damage GFR 15-29 Stage 5: Severe kidney damage GFR <15 ESRD - chronic treatment by dialysis or transplant Performed By: #### G LYHGB, PROL, LIPR #### [facility] [employer] [address] [place], [place] [id number] Lace Weaver: Grant Betancourt MD #### BMP, CDP #### [facility] [address] [place] [address] [place] [address] Lace Weaver: Jhonatan Shelton MD Urea nitrogen [Mass/Vol] 8 mg/dL Normal 6-20 [facility] Comment on above: Performed By: #### G LYHGB, PROL, LIPR #### [facility] [employer] [address] [place], [place] [id number] Lace Weaver: Grant Betancourt MD #### BMP, CDP #### [facility] [address] [place] [address] [place] [address] Lace Weaver: Jhonatan Shelton MD CBC Auto Differentialon 04-29 Basophils (Bld) [#/Vol] 10*3/uL [place] Basophils/100 WBC (Bld) 0 % 0 - 2 % [place] Differential Type NOT REPORTED [place] Eosinophils (Bld) [#/Vol] 0.23 10*3/uL [place] Eosinophils/100 WBC (Bld) 4 % 1 - 4 % [place] Erythrocyte distribution width (RBC) [Ratio] 13.1 % 11.8 - 14.4 % [place] Hematocrit (Bld) [Volume fraction] 42.0 % 36.3 - 47.1 % [place] Hemoglobin (Bld) [Mass/Vol] 13.6 g/dL 11.9 - 15.1 g/dL [place] Immature granulocytes (Bld) [#/Vol] 0.07 10*3/uL [place] Immature granulocytes (Bld) [#/Vol] 1 % High 0 [place] Interpretation and review of laboratory results Abnormal [place] Lymphocytes (Bld) [#/Vol] 1.75 10*3/uL [place] Lymphocytes/100 WBC (Bld) 28 % 24 - 43 % [place] MCH (RBC) [Entitic mass] 28.7 pg 25.2 - 33.5 pg [place] MCHC (RBC) [Mass/Vol] 32.4 g/dL 28.4 - 34.8 g/dL [place] MCV (RBC) [Entitic vol] 88.6 fL 82.6 - 102.9 fL [place] Monocytes (Bld) [#/Vol] 0.29 10*3/uL [place] Monocytes/100 WBC (Bld) 5 % 3 - 12 % [place] Platelet mean volume (Bld) [Entitic vol] 9.2 fL 8.1 - 13.5 fL [place] Platelets (Bld) [#/Vol] 262 10*3/uL [place] Platelets (Bld) [#/Vol] NOT REPORTED [place] RBC (Bld) [#/Vol] 4.74 10*6/uL 3.95 - 5.1 1 m/uL [place] RBC morphology finding Nom (Bld) NOT REPORTED [place] Segmented neutrophils/100 WBC (Bld) 62 % 36 - 65 % [place] Segs Absolute 3.99 [place] WBC (Bld) [#/Vol] 6.4 10*3/uL [place] WBC (Bld) [#/Vol] 0.0 10*3/uL 0.0 per 10 0 WBC [place] WBC Morphology NOT REPORTED [place], [place] CBC with Diffon 05-19-2020 Abs. Basophil <0.03 Normal 0.00-0.20 [facility] Comment on above: Performed By: #### G LYHGB, PROL, LIPR #### [facility] [employer] [facility] [place] [address] Lace Weaver: Grant Betancourt MD #### BMP, CDP #### [facility] [address] [place] [address] Lace Weaver: Jhonatan Shelton MD Abs.Imm.Granulocyte 0.07 k/uL Normal 0.00-0.30 [facility] Comment on above: Performed By: #### G LYHGB, PROL, LIPR #### [address] [id number] Lace Weaver: Grant Betancourt MD #### BMP, CDP #### [facility] [address] [place] [address] Dr[address] [place] [id number] Lace Weaver: Jhonatan Shelton MD Abs.Neutrophil (Seg) 3.99 k/uL Normal 1.50-8.10 [facility] Comment on above: Performed By: #### G LYHGB, PROL, LIPR #### [address] [id number] Lace Weaver: Grant Betancourt MD #### BMP, CDP #### [facility] [address] [place] [address] Dr. [place] [id number] Lace Weaver: Jhonatan Shelton MD Basophils/100 WBC (Bld) 0 % Normal 0-2 [facility] Comment on above: Performed By: #### G LYHGB, PROL, LIPR #### [address] [id number] Lace Weaver: Grant Betancourt MD #### BMP, CDP #### [facility] [address] [place] [address] Lace Weaver: Jhonatan Shelton MD Eosinophils (Bld) [#/Vol] 0.23 10*3/uL Normal 0.00-0.44 [facility] Comment on above: Performed By: #### G LYHGB, PROL, LIPR #### [address] [id number] Lace Weaver: Grant Betancourt MD #### BMP, CDP #### [facility] [address] [place] [address] Lace Weaver: Jhonatan Shelton MD Eosinophils/100 WBC (Bld) 4 % Normal 1-4 [facility] Comment on above: Performed By: #### G LYHGB, PROL, LIPR #### [address] [id number] Lace Weaver: Grant Betancourt MD #### BMP, CDP #### [facility] [address] [place] [id number] Lace Weaver: Jhonatan Shelton MD Erythrocyte distribution width (RBC) [Ratio] 13.1 % Normal 11.8-14.4 [facility] Comment on above: Performed By: #### G LYHGB, PROL, LIPR #### [address] [id number] Lace Weaver: Grant Betancourt MD #### BMP, CDP #### [address] [place] [id number] Lace Weaver: Jhonatan Shelton MD Hematocrit (Bld) [Volume fraction] 42.0 % Normal 36.3-47.1 [facility] Comment on above: Performed By: #### G LYHGB, PROL, LIPR #### [address] [address] Lace Weaver: Grant Betancourt MD #### BMP, CDP #### [address] [place] [address] Lace Weaver: Jhonatan Shelton MD Hemoglobin (Bld) [Mass/Vol] 13.6 g/dL Normal 11.9-15.1 [facility] Comment on above: Performed By: #### G LYHGB, PROL, LIPR #### [address] [address] Lace Weaver: Grant Betancourt MD #### BMP, CDP #### [facility] [address] [place] [address] Lace Weaver: Jhonatan Shelton MD Immature granulocytes (Bld) [#/Vol] 1 % High 0 [facility] Comment on above: Performed By: #### G LYHGB, PROL, LIPR #### [address] [address] Lace Weaver: Grant Betancourt MD #### BMP, CDP #### [facility] [address] [place] [id number] Lace Weaver: Jhonatan Shelton MD Lymphocytes (Bld) [#/Vol] 1.75 10*3/uL Normal 1.10-3.70 [facility] Comment on above: Performed By: #### G LYHGB, PROL, LIPR #### [address] [id number] Lace Weaver: Grant Betancourt MD #### BMP, CDP #### [address] [place] [id number] Lace Weaver: Jhonatan Shelton MD Lymphocytes/100 WBC (Bld) 28 % Normal 24-43 [facility] Comment on above: Performed By: #### G LYHGB, PROL, LIPR #### [address] [address] Lace Weaver: Grant Betancourt MD #### BMP, CDP #### [facility] [address] [place] [id number] Lace Weaver: Jhonatan Shelton MD MCH (RBC) [Entitic mass] 28.7 pg Normal 25.2-33.5 [facility] Comment on above: Performed By: #### G LYHGB, PROL, LIPR #### [address] [address] Lace Weaver: Grant Betancourt MD #### BMP, CDP #### [address] [place] [id number] Lace Weaver: Jhonatan Shelton MD MCHC (RBC) [Mass/Vol] 32.4 g/dL Normal 28.4-34.8 [facility] Comment on above: Performed By: #### G LYHGB, PROL, LIPR #### [address] [id number] Lace Weaver: Grant Betancourt MD #### BMP, CDP #### [address] [place] [id number] Lace Weaver: Jhonatan Shelton MD MCV (RBC) [Entitic vol] 88.6 fL Normal 82.6-102.9 [facility] Comment on above: Performed By: #### G LYHGB, PROL, LIPR #### [address] [id number] Lace Weaver: Grant Betancourt MD #### BMP, CDP #### [address] [place] [id number] Lace Weaver: Jhonatan Shelton MD Monocytes (Bld) [#/Vol] 0.29 10*3/uL Normal 0.10-1.20 [facility] Comment on above: Performed By: #### G LYHGB, PROL, LIPR #### [address] [id number] Lace Weaver: Grant Betancourt MD #### BMP, CDP #### [address] [place] [address] Lace Weaver: Jhonatan Shelton MD Monocytes/100 WBC (Bld) 5 % Normal 3-12 [facility] Comment on above: Performed By: #### G LYHGB, PROL, LIPR #### [address] [address] Lace Weaver: Grant Betancourt MD #### BMP, CDP #### [facility] [address] [place] [address] Lace Weaver: Jhonatan Shelton MD Neutrophil (Seg) 62 % Normal 36-65 [facility] Comment on above: Performed By: #### G LYHGB, PROL, LIPR #### [address] [address] Lace Weaver: Grant Betancourt MD #### BMP, CDP #### [facility] [address] [place] [address] [place] [address] Lace Weaver: Jhonatan Shelton MD NRBC Automated 0.0 per 100 WBC Normal 0.0 [facility] Comment on above: Performed By: #### G LYHGB, PROL, LIPR #### [address] [address] Lace Weaver: Grant Betancourt MD #### BMP, CDP #### [facility] [address] [place] [address] [place] [address] Lace Weaver: Jhonatan Shelton MD Platelet mean volume (Bld) [Entitic vol] 9.2 fL Normal 8.1-13.5 [facility] Comment on above: Performed By: #### G LYHGB, PROL, LIPR #### [address] [address] Lace Weaver: Grant Betancourt MD #### BMP, CDP #### [facility] [address] [place] [address] [place] [address] Lace Weaver: Jhonatan Shelton MD Platelets (Bld) [#/Vol] 262 10*3/uL Normal 138-453 [facility] Comment on above: Performed By: #### G LYHGB, PROL, LIPR #### [address] [address] Lace Weaver: Grant Betancourt MD #### BMP, CDP #### [address] [place], [place] [id number] Lace Weaver: Jhonatan Shelton MD RBC (Bld) [#/Vol] 4.74 10*6/uL Normal 3.95-5.11 [facility] Comment on above: Performed By: #### G LYHGB, PROL, LIPR #### [address] [address] Lace Weaver: Grant Betancourt MD #### BMP, CDP #### [address] [place] [address] Lace Weaver: Jhonatan Shelton MD WBC (Bld) [#/Vol] 6.4 10*3/uL Normal 3.5-11.3 [facility] Comment on above: Performed By: #### G LYHGB, PROL, LIPR #### [address] [address] Lace Weaver: Grant Betancourt MD #### BMP, CDP #### [address] [place], [place] [phone] Lace Weaver: Jhonatan Shelton MD Auto Diff Performed NOT REPORTED Normal [facility] Comment on above: Performed By: #### G LYHGB, PROL, LIPR #### [address] [address] Lace Weaver: Grant Betancourt MD #### BMP, CDP #### [address] [place], [place] [id number] Lace Weaver: Jhonatan Shelton MD Platelets (Bld) [#/Vol] NOT REPORTED Normal [facility] Comment on above: Performed By: #### G LYHGB, PROL, LIPR #### [address] [id number] Lace Weaver: Grant Betancourt MD #### BMP, CDP #### [facility] [address] [place], [place] [id number] Lace Weaver: Jhonatan Shelton MD RBC morphology finding Nom (Bld) NOT REPORTED Normal [facility] Comment on above: Performed By: #### G LYHGB, PROL, LIPR #### [facility] [address] [place], [place] [id number] Lace Weaver: Grant Betancourt MD #### BMP, CDP #### [facility] [address] [place] [address] [place], [place] [id number] Lace Weaver: Jhonatan Shelton MD WBC Morphology NOT REPORTED Normal [facility] Comment on above: Performed By: #### G LYHGB, PROL, LIPR #### [address] [place] [address] Lace Weaver: Grant Betancourt MD #### BMP, CDP #### [facility] [address] [place] [address] [place], [place] [id number] Lace Weaver: Jhonatan Shelton MD Lipid Panelon 05-19-2020 Cholesterol [Mass/Vol] 99 mg/dL <200 [place] Comment on above: Cholesterol Guidelines: <200 Desirable 200-240 Borderline >240 Undesirable Cholesterol in HDL [Mass/Vol] 30 mg/dL Low >40 [place] Comment on above: HDL Guidelines: <40 Undesirable 40-59 Borderline >59 Desirable Cholesterol in LDL [Mass/Vol] 15 mg/dL 0 - 130 mg/dL [place] Comment on above: LDL Guidelines: <100 Desirable 100-129 Near to/above Desirable 130-159 Borderline >159 Undesirable Direct (measured) LDL and calculated LDL are not interchangeable tests. Cholesterol in VLDL [Mass/Vol] NOT REPORTED High 1 - 30 mg/dL [place] Cholesterol.total/Ch olesterol in HDL [Mass ratio] 3.3 {ratio} <5 [place] Interpretation and review of laboratory results Abnormal [place] Triglyceride [Mass/Vol] 270 mg/dL High <150 [place] Comment on above: Triglyceride Guidelines: <150 Desirable 150-199 Borderline 200-499 High >499 Very high Based on AHA Guidelines for fasting triglyceride, May 2012. Lipid Profileon 05-19-2020 Cholesterol [Mass/Vol] 99 mg/dL Normal <200 [facility] Comment on above: Result Comment: Cholesterol Guidelines: <200 Desirable 200-240 Borderline >240 Undesirable Performed By: #### G LYHGB, PROL, LIPR #### [address] [address] Lace Weaver: Grant Betancourt MD #### BMP, CDP #### [address] [place] [address] Lace Weaver: Jhonatan Shelton MD Cholesterol in HDL [Mass/Vol] 30 mg/dL Low >40 [facility] Comment on above: Result Comment: HDL Guidelines: <40 Undesirable 40-59 Borderline >59 Desirable Performed By: #### G LYHGB, PROL, LIPR #### [address] [address] Lace Weaver: Grant Betancourt MD #### BMP, CDP #### [address] [place] [address] Lace Weaver: Jhonatan Shelton MD Cholesterol in LDL [Mass/Vol] 15 mg/dL Normal 0-130 [facility] Comment on above: Result Comment: LDL Guidelines: <100 Desirable 100-129 Near to/above Desirable 130-159 Borderline >159 Undesirable Direct (measured) LDL and calculated LDL are not interchangeable tests. Performed By: #### G LYHGB, PROL, LIPR #### [address] [address] Lace Weaver: Grant Betancourt MD #### BMP, CDP #### [facility] [address] [place] [address] [place] [address] Lace Weaver: Jhonatan Shelton MD Cholesterol.total/Ch olesterol in HDL [Mass ratio] 3.3 {ratio} Normal <5 [facility] Comment on above: Performed By: #### G LYHGB, PROL, LIPR #### [address] [place] [address] Lace Weaver: Grant Betancourt MD #### BMP, CDP #### [facility] [address] [place] [address] [place], [place] [phone] Lace Weaver: Jhonatan Shelton MD Triglyceride [Mass/Vol] 270 mg/dL High <150 [facility] Comment on above: Result Comment: Triglyceride Guidelines: <150 Desirable 150-199 Borderline 200-499 High >499 Very high Based on AHA Guidelines for fasting triglyceride, May 2012. Performed By: #### G LYHGB, PROL, LIPR #### [address] [place] [address] Lace Weaver: Grant Betancourt MD #### BMP, CDP #### [address] [place], [place] [phone] Lace Weaver: Jhonatan Shelton MD Cholesterol in VLDL [Mass/Vol] NOT REPORTED Normal 09-26 [facility] Comment on above: Performed By: #### G LYHGB, PROL, LIPR #### [address] [place] [address] Lace Weaver: Grant Betancourt MD #### BMP, CDP #### [address] [place] [address] Lace Weaver: Jhonatan Shelton MD Metabolic Panelon 05-19-2020 GFR/1.73 sq M predicted among non-blacks MDRD (S/P/Bld) [Vol rate/Area] [facility] [place] Comment on above: Stage 1: Some kidney damage normal GFR Stage 2: Mild kidney damage GFR 60-89 Stage 3: Moderate kidney damage GFR 30-59 Stage 4: Severe kidney damage GFR 15-29 Stage 5: Severe kidney damage GFR <15 ESRD - chronic treatment by dialysis or transplant Average GFR for 40-4 9 years old: 99 mL/min/1.73sq m Chronic Kidney Disease: <60 mL/min/1.73sq m Kidney failure: <15 mL/min/1.73sq m eGFR calculated using average adult body mass. Additional eGFR calculator available at: http://www.Nexi/multiple_crcl_2012.htm Prolactinon 05-19-2020 Prolactin 44.31 ug/L High 4.79-23.30 [facility] Comment on above: Result Comment: The presence of macroprolactin may cause interference in female patients with various endocrinological diseases or during . Performed By: #### G LYHGB, PROL, LIPR #### [facility] [address] [place] [address] Lace Weaver: Grant Betancourt MD #### BMP, CDP #### [facility] [address] [place] [address] Lace Weaver: Jhonatan Shelton MD Interpretation and review of laboratory results Abnormal [place] Prolactin 44.31 ug/L High 4.79 - 23.3 ug/L [place] Comment on above: The presence of macr oprolactin may cause interference in female patients with various endocrinological diseases or during . Vital Signs Date Time Vital Sign Value Performing Clinician Facility 09-29-2023 11:34-0500 Body height 160 cm Alex De La O MD Work Phone: [facility] 09-29-2023 11:34-0500 Body mass index (BMI) [Ratio] 38.44 kg/m2 Alex De La O MD Work Phone: [facility] 09-29-2023 11:34-0500 Body temperature 97.11 [degF] Alex De La O MD Work Phone: [facility] 09-29-2023 11:34-0500 Body weight 98.43 kg Alex De La O MD Work Phone: [facility] 09-29-2023 11:34-0500 Diastolic blood pressure 80 mm[Hg] Alex De La O MD Work Phone: [facility] 09-29-2023 11:34-0500 Heart rate 95 /min Alex De La O MD Work Phone: [facility] 09-29-2023 11:34-0500 SaO2% (BldA) [Mass fraction] 98 % Alex De La O MD Work Phone: [facility] 09-29-2023 11:34-0500 Systolic blood pressure 138 mm[Hg] Alex De La O MD Work Phone: [facility] 09-13-2023 17:00-0500 Body height 162.56 cm Gail Reyes Other [facility] Other 09-13-2023 17:00-0500 Body mass index (BMI) [Ratio] 36.73 kg/m2 Gail Amy Other [facility] Other 09-13-2023 17:00-0500 Body temperature 97.7 [degF] Gail Amy Other [facility] Other 09-13-2023 17:00-0500 Body weight 97.07 kg Gail Amy Other [facility] Other 09-13-2023 17:00-0500 Diastolic blood pressure 80 mm[Hg] Gail Reyes Other [facility] Other 09-13-2023 17:00-0500 Respiratory rate 18 /min Gail Reyes Other [facility] Other 09-13-2023 17:00-0500 SaO2% (BldA) [Mass fraction] 97 % Gail Reyes Other [facility] Other 09-13-2023 17:00-0500 Systolic blood pressure 122 mm[Hg] Gail Reyes Other [facility] Other 03-29-2022 12:00-0400 Body height 162.56 cm Gustavo Beyer Other [facility] Other 03-29-2022 12:00-0400 Body mass index (BMI) [Ratio] 34.84 kg/m2 Gustavo Bautistaxa Other [facility] Other 03-29-2022 12:00-0400 Body weight 92.08 kg Gustavo Bautistaxa Other [facility] Other Encounters Encounter Date Encounter Type Care Provider Facility Start: 01-19-2024 End: 01-19-2024 ambulatory ALEX DE LA O Not Available Start: 11-23-2023 End: 11-23-2023 ambulatory SAM PAYTON Not Available Start: 09-29-2023 Clinisync Result Encounter Alex De La O MD Work Phone: [facility] External Department Unsolicited Start: 09-29-2023 Clinisync Result Encounter Alex De La O MD Work Phone: [facility] External Department Unsolicited Start: 09-29-2023 End: 09-29-2023 ambulatory ALEX DE LA O Not Available Start: 09-29-2023 End: 09-29-2023 Office outpatient visit 25 minutes Alex De La O MD Work Phone: [facility] Comment on above: Type 2 diabetes jackson itus with hyperglycemia, without long-term current use of insulin ([facility]) (Primary Dx); Overactive bladder; Memory loss of; Lower extremity edema; Gastroesophageal reflux disease without esophagitis; Seasonal allergic rhinitis due to pollen Start: 09-13-2023 End: 09-13-2023 ambulatory Gail Reyes Other [facility] Other Start: 01-17-2024 Office outpatient visit 15 minutes Gail Reyes [facility] Start: 01-11-[address] ALEX DE LA O Facil ity:[facility] Start: 08-30-2022 End: 08-31-[address] ALEX DE LA O Facility:[facility] Start: 05-10-2022 End: 05-10-2022 ambulatory Gustavo Olexa Other [facility] Other Start: 05-10-2022 Office outpatient visit 15 minutes Gustavo Olexa [facility] Start: 03-29-2022 End: 03-29-2022 ambulatory Gustavo Olexa Other [facility] Other Start: 03-29-2022 Office outpatient ne w 30 minutes Gustavo Olexa [facility] Start: 03-23-2022 End: 03-23-2022 ambulatory [facility] [place] . Facility:[facility] Start: 02-09-2022 End: 02-10-[address] ALEX DE LA O Facility:[facility] Start: 05-19-2020 End: 05-20-2020 Patient encounter procedure EZIO S [facility] Start: 05-19-2020 End: 05-19-2020 Subsequent hospital visit by physician [facility] Drawing Room [facility] Comment on above: Arrived Procedures Date Procedure Procedure Detail Performing Clinician Start: 09-29-2023 MLR HEMOGLOBIN A1C Alex De La O MD Work Phone: Start: 05-19-2020 Assay of prolactin JATI NDER RANA Start: 05-19-2020 Basic metabolic pane l calcium total EZIO RANA Start: 05-19-2020 Blood count complete auto&auto difrntl wbc EZIO RANA Start: 05-19-2020 Hemoglobin glycosyla andria a1c EZIO RANA Start: 05-19-2020 Lipid panel EZIO R BRANDON Start: 05-19-2020 Assay of prolactin Jati nder S Rana Work Phone: Start: 05-19-2020 Basic metabolic pane l calcium total Ezio S Rana Work Phone: Start: 05-19-2020 Blood count complete auto&auto difrntl wbc Ezio S Rana Work Phone: Start: 05-19-2020 Lipid panel Ezio Landin Work Phone: Plan of Treatment Date Care Activity Detail Author Start: 03-28-2024 End: 03-28-2024 Patient encounter procedure 03/28/2024 9:45 AM EDT Office Visit [facility] [address] [place] [id number] Alex De La O MD [address] [place] [id number] [facility] Start: 03-22-2024 Urine screening for protein Diabetes: Urine Protein Screening [facility] Start: 09-29-2023 End: 09-29-2024 Hemoglobin A1c measurement Hemoglobin A1c Lab Routine Type 2 diabetes mellitus with hyperglycemia, without long-term current use of insulin ([facility]) Expected: 09/29/2023 (Approximate), Expires: 09/29/2024 [facility] Work Phone: Comment on above: Expected: 09/29/2023 (Approximate), Expi res: 09/29/2024 Start: 04-28-2023 Influenza vaccination Influenza Vaccine (#1) [facility] Start: 08-18-2020 Hemoglobin A1c measurement Diabetes: Hemoglobin A1C [facility] Start: 04-28-2020 Influenza vaccination Flu vaccine (#1) [place], [place] Start: 02-02-2020 Creatinine measurement Creatinine monitoring [place], [place] Start: 02-02-2020 HbA1c (Bld) [Mass fraction] A1C test (Diabetic or Prediabetic) [place], [place] Start: 02-02-2020 Lipid panel Lipid screen [place] Start: 02-02-2020 Potassium monitoring Potassium monitoring [place] Start: 02-17-2019 Annual Wellness Visit (AWV) Annual Wellness Visit (AWV) [place] Start: 2013 Screening for malignant neoplasm of breast Mammogram [facility] Start: 2003 Screening for malignant neoplasm of cervix [facility] Start: 1994 Screening for malignant neoplasm of cervix [facility] Start: 1992 DTaP/Tdap/Td vaccine (1 - Tdap) DTaP/Tdap/Td vaccine (1 - Tdap) [place], [place] Start: 1991 Diabetic microalbuminuria test Diabetic microalbuminuria test [place] Start: 1988 HIV screening HIV screen [place] Start: 1983 Diabetic foot examination Diabetic foot exam [place] Start: 1983 Diabetic retinal exam Diabetic retinal exam [place], [place] Start: 1983 Glaucoma screening Diabetes: Retinopathy Screening [facility] Start: 1973 Medicare Annual Wellness (AWV) Medicare Annual Wellness (AWV) [facility] Start: 1973 Screening for malignant neoplasm of colon [facility] End: 05-19-2020 HbA1c (Bld) [Mass fraction] Hemoglobin A1C Lab Routine Once for 1 Occurrences starting 05/19/2020 until 05/19/2020 [place] Comment on above: Once for 1 Occurrences starting 05/19/20 20 until 05/19/2020 HbA1c (Bld) [Mass fraction] Hemoglobin A1C Lab Routine 05/19/2020 9:31 AM EDT [place] Immunizations Immunization Date Immunization Notes Care Provider Marie vickers 08-03-2021 influenza virus vacc ine, unspecified formulation Alex De La O MD Work Phone: [facility] Payers Date Payer Category Payer Medicaid [facility] [place] [id number] 2017-Present [phone] [address] [place] [address] Medicaid [id number] 2001 Medicare MEDICARE MEDICAR E PART B [id number] 2001-Present [place] [address] Medicare [id number] 1973 Unknown [id number] 1973 Unknown [id number] 1973 Unknown [id number] 1973 Unknown [id number] 1973 Unknown [id number] 1973 Unknown [id number] 1973 Unknown [id number] 1973 Unknown [id number] 1959 Medicaid [id number] 1959 Medicare [id number] Social History Date Type Detail Facility Start: 09-29-2015 End: 09-23-2023 Tobacco smoking status NHIS Never smoker [place] Start: 09-29-2015 Alcohol intake 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) [place], [place] Start: 1973 Sex Assigned At Not on file [place], [place] Start: 09-29-2023 Sex Assigned At [facility] [employer] Other Start: 09-23-2023 Tobacco use and exposure Smokeless tobacco non-user [facility] Start: 09-29-2023 History of Social function [facility] History of Present illness Narrative 09-29-2023 Alex De La O MD - 09/29/2023 12:08 PM Janet De La O MD - 09/29/2023 12:08 PM Janet De La O MD - 09/29/2023 12:08 PM Janet De La O MD - 09/29/2023 12:07 PM EST Note Date & Type Note Facility 09-29-2023 History of Presen t illness Narrative Associated Problem(s): Gastroesophageal reflux disease without esophagitis Symptoms controlled with omeprazole and continue. Associated Problem(s): Lower extremity edema Edema stable and continue lasix. Elevate legs PRN. Associated Problem(s): Memory loss of Increased forgetfulness and recommend discuss with psychiatry. Associated Problem(s): Overactive bladder Worsening symptoms and possibly related to elevated BS. Increase oxybutynin. Associated Problem(s): Type 2 diabetes mellitus with hyperglycemia, without long-term current use of insulin ([facility]) Reports BS elevated and due for A1C. Stick to ADA diet and limit carbs. Subjective Patient ID: Dago Sumner is a 48 y.o. female who presents for Follow-up. F/u DM, edema, GERD, allergies, incontinence, and behavior. History of MR and lives in a shelter. BS recently elevated around 150-180. Due for A1C. Tries to eat well and stick to ADA diet but has occasional splurges. Denies signs of elevated BS such as polyuria, polyphagia or polydipsia. Incontinence worse and now almost daily. Increased frequency and urgency. Frequent leakage and accidents. Continues to take oxybutynin but not helping. Edema controlled with medication. Mild swelling at end of day and if on feet a lot. Edema improved in am and with elevation. Allergies controlled with medication. No congestion or rhinorrhea. No BLISS or sinus pressure. Ears not plugged or popping. GERD controlled with omeprazole. Denies epigastric pain or burning and not waking up with symptoms. Behavior stable and no outbursts or aggression. Staff notices worsening memory and increased forgetfulness. Follows with psychiatry. Review of Systems Respiratory: Negative for cough, shortness of breath and wheezing. Cardiovascular: Negative for chest pain and palpitations. Gastrointestinal: Negative for abdominal pain, diarrhea, nausea and vomiting. Genitourinary: Negative for dysuria. Objective Physical Exam Constitutional: General: She is not in acute distress. Appearance: Normal appearance. HENT: Head: Normocephalic. Right Ear: Tympanic membrane normal. Left Ear: Tympanic membrane normal. Eyes: Extraocular Movements: Extraocular movements intact. Pupils: Pupils are equal, round, and reactive to light. Cardiovascular: Rate and Rhythm: Normal rate and regular rhythm. Heart sounds: No murmur heard. No friction rub. No gallop. Pulmonary: Effort: Pulmonary effort is normal. Breath sounds: Normal breath sounds. No wheezing, rhonchi or rales. Abdominal: General: Bowel sounds are normal. There is no distension. Palpations: Abdomen is soft. Tenderness: There is no abdominal tenderness. There is no guarding or rebound. Musculoskeletal: Cervical back: Neck supple. Right lower leg: No edema. Left lower leg: No edema. Neurological: Mental Status: She is alert. Assessment/Plan Problem List Items Addressed This Visit Lower extremity edema Edema stable and continue lasix. Elevate legs PRN. Gastroesophageal reflux disease without esophagitis Symptoms controlled with omeprazole and continue. Type 2 diabetes mellitus with hyperglycemia, without long-term current use of insulin ([facility]) - Primary Reports BS elevated and due for A1C. Stick to ADA diet and limit carbs. Relevant Orders Hemoglobin A1c Overactive bladder Worsening symptoms and possibly related to elevated BS. Increase oxybutynin. Relevant Medications oxybutynin XL (Ditropan-XL) 15 MG 24 hr tablet Seasonal allergic rhinitis due to pollen Memory loss of Increased forgetfulness and recommend discuss with psychiatry. documented in this encounter [facility] Evaluation note 09-13-2023 Note Date & Type Note Facility 09-13-2023 Evaluation note Encounter Date Diagnosis Assessment Notes Aug, Dysuria (ICD-10 - R30.0) Aug, Vaginal candidiasis (ICD-10 - B37.31) Drink plenty fluids, get plenty of rest. Take your home medications as prescribed. Take the Diflucan as prescribed for vaginal yeast infection. Follow-up with family physician if no improvement in 3 to 4 days Aug, Other Vaginal yeast infection material was printed [facility] Other Evaluation note 05-10-2022 Note Date & Type Note Facility 05-10-2022 Evaluation note Encounter Date Diagnosis Assessment Notes Apr, Rotator cuff impingement syndrome of left shoulder (ICD-10 - M75.42) The patient has noted signs of improvement. We will continue working and gentle motion and strength exercise. Patient is to continue to participate in physical therapy as well as at home exercises as demonstrated in office today. Follow up as needed. Patient voices understanding and is agreeable to concervative treatment plan. full active motion, 4+ abduction strength, 4+ external rotation strength Apr, Left shoulder tendonitis (ICD-10 - M77.8) [facility] Other Evaluation note 03-29-2022 Note Date & Type Note Facility 03-29-2022 Evaluation note Encounter Date Diagnosis Assessment Notes Mar, Rotator cuff impingement syndrome of left shoulder (ICD-10 - M75.42) This appears to be pain secondary to subacromial bursitis / rotator cuff tendonitis / impingement. We discussed and demonstrated gentle motion exercise and rotator cuff strengthening exercise. Discussed the use of non-steroidal anti-inflammator y medication. A marcaine / kenalog cortisone injection was performed into the subacromial space under sterile technique. Patient tolerated the injection well with no adverse reaction. Formal therapy order provided. Mar, Left shoulder tendonitis (ICD-10 - M77.8) [facility] Other Evaluation note Note Date & Type Note Facility Evaluation note Diagnosis Type 2 diabetes mellitus with hyperglycemia, without long-term current use of insulin ([facility])- Primary Overactive bladder Hypertonicity of bladder Memory loss of Memory loss Lower extremity edema Edema Gastroesophageal reflux disease without esophagitis Esophageal reflux Seasonal allergic rhinitis due to pollen documented in this encounter [facility] History general Narrative - Reported Note Date & Type Note Facility History general Narrative - Reported Type Medical History MR (mental retardation) Medical History Depression Medical History OAB Surgical History eyes [facility] Other Advance Directives No Advanced Directives Records FoundDocuments on File Type Date Recorded 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 Expl 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 ACP-Advance Directive ACP-Advance Directive 02/01/2019 10:30 AM ACP-Power of Logistics Technician Summary Purpose Family History No Family History Records FoundNo Family History Records FoundNo Family History Records Found Additional Source Comments INFORMATION SOURCE (unrecogn ized section and content) DATE CREATED AUTHOR 05/21/2020 [facility] DATE CREATED AUTHOR AUTHOR'S ORGANIZ ATION 01/11/2023 [facility] DATE CREATED AUTHOR AUTHOR'S ORGANIZ ATION 01/21/2024 [facility] EPIC REASON FOR VISIT (unrecogniz ed section and content) Reason Comments Follow-up Care Teams (unrecognized sec tion and content) 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 This clinical summary was aggregated from multiple sources. Caution should be exercised in using it in the provision of clinical care. This summary normalizes information from multiple sources, and as a consequence, information in this document may materially change the coding, format and clinical context of patient data. In addition, data may be omitted in some cases. CLINICAL DECISIONS SHOULD BE BASED ON THE PRIMARY CLINICAL RECORDS. [facility]. provides no warranty or guarantee of the accuracy or completeness of information in this document.
[2024-01-24 15:59] LABS: Estimated Average Glucose 174 mg/dL; Glycohemoglobin A1C 7.7 % (4.5-6.2)
== END 2024-01-24 15:27 | disposition home or self-care (01) ==
LOC: LAB 15:28
PROVIDERS: PCP Family Medicine; Visit Provider Family Medicine
DX: E11.65 Type 2 diabetes mellitus with hyperglycemia (principal)
CPT/HCPCS: 36415; 83036

== ENCOUNTER 2024-05-02 08:59 | Outpatient (OUT) | payer MEDICARE, MEDICAID, SELFPAY ==
--- NOTE | 2024-05-02 09:05 | MM_ITS ---
Patient Name: DAGO RAI MR#: [id number] : 1975 Exam Date: 05/02/2024 Ordering Doctor: DR Alex Peraza . RADIOLOGY REPORT PROCEDURE: MM TOMOSYNTHESIS SCREENING BI COMPARISON: MG MAMM SCREEN 3D ADÁN CAD, 01/06/2022. MG MAMM SCREEN 3D ADÁN CAD, 01/04/2021. MG MAMM SCREEN ADÁN W CAD, 01/02/2020. MG MAMM ADÁN SCRN W CAD DIG, 10/31/2013. INDICATIONS: Screening Calculator Name NCI Breast Cancer Risk Assessment Tool 5 Year Breast Cancer Risk 1.00% Lifetime Breast Cancer Risk 8.80% Personal Breast Cancer No Personal Ovarian Cancer No Treatments None Family Cancers None LOCATION: [facility] BREAST COMPOSITION: There are scattered areas of fibroglandular density. FINDINGS: DIAGNOSTIC CATEGORY 1--NEGATIVE. RIGHT BREAST: No significant suspicious finding. No significant change has occurred. LEFT BREAST: No significant suspicious finding. No significant change has occurred. RECOMMENDATIONS: ROUTINE MAMMOGRAM AND CLINICAL EVALUATION IN 12 MONTHS. PLEASE NOTE: A NORMAL MAMMOGRAM DOES NOT EXCLUDE THE POSSIBILITY OF BREAST CANCER. A CLINICALLY SUSPICIOUS PALPABLE LUMP SHOULD BE BIOPSIED. Dictated by: Kristian Mooney M.D. on 05/03/2024 at 14:41 Approved by: Kristian Mooney M.D. on 05/03/2024 at 14:46
--- OUTSIDE RECORDS SUMMARY | 2024-05-02 09:21 | XMS_ITS | CCD ---
Author Organization [facility] Care Team Providers Care Purchasing And Claims Supervisor Name Role Phone Alex De La O Primary Care Provider EZIO LANDIN Referring Unavailable JAIRON, ALEX WARNER Primary Care UnavailGustavo Wilson Unavailable JAIRON, DR ALEX Kennedy Attending Unavailable NADERER, DR ALEX Kennedy Admitting Unavailable NADERER, DR ALEX Kennedy Primary Care Unavailable NADERER, DR AELX Kennedy Consulting Unavailable NADERER, DR ALEX Kennedy Attending Unavailable NADERER, DR ALEX Kennedy Admitting Unavailable NADERER, DR ALEX Kennedy Primary Care Unavailable NADERER, DR ALEX Kennedy Consulting Unavailable NADERER, DR ALEX Kennedy Attending Unavailable NADERER, DR ALEX Kennedy Admitting Unavailable NADERER, DR ALEX Kennedy Primary Care Unavailable MINE .XENA Admitting Unavailable XENA ROBISON Attending Unavailable PATRICK VARGHESE Consulting Unavailable NADEREKaylee, DR ALEX Kennedy Primary Care Unavailable HORACE WELCH Consulting Unavailable Gail Reyes Unavailable Alex De La O MD Primary Care Provider ALEX DE LA O Attending Unavailable SAM PAYTON Attending Unavailable JAIRON, ALEX Attending Unavailable SAM PAYTON Attending Unavailable JAIRON, ALEX Attending Unavailable Allergies Allergy Classification Reported Allergen(s) Allergy Type Date of Onset Reaction(s) Facility (1 source) Penicillins Propensity to adverse reactions to drug 09-17-2015 [facility], [place] Medications Current Medications Medication Drug Class(es) Dates [...] 09-29-2023 Episodic Other aftercare (1 source) 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) drug 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; 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] Onset: 03-25-2022 Episodic Other [...] Test Name Value Interpretation Reference Range Facility [facility] HEMOGLOBIN A1Con 024 Glucose [Mass/Vol] 166 mg/dL [facility] HbA1c (Bld) [Mass fraction] 7.4 % High 4.5 - 6.2 % [facility] Comment on above: ADA RECOMMENDED LIMI T 4.0 - 6.0 ADA THERAPEUTIC TARGET < 7.0 ACTION SUGGESTED > 7.0 Interpretation and review of laboratory results Abnormal [facility] e Urinalysis - AUTOMATEDon Appearance (U) clear VOZ Other Bilirubin Ql (U) Negative Strands Other Color (U) yellow Imp[employer]iv Other Glucose Ql (U) Negative VOZ Other Hemoglobin Ql (U) Negative [employer] Other Ketones Ql (U) trace VOZ Other Leukocyte esterase Test strip Ql (U) Negative [employer] Other Nitrite Ql (U) Negative VOZ Other pH (U) 5.5 [pH] [employer] Other Protein Ql (U) Negative VOZ Other Specific gravity (U) [Rel density] 1.025 [employer] Other Urobilinogen (U) [Mass/Vol] 0.2 mg/dL [employer] Other Urinalysis - AUTOMATED [employer] Other GLYCOHEMOGLOBIN A1Con 2022 ADA RECOMMENDATION SEE BELOW Normal [facility] Comment on above: Result Comment: ADA RECOMMENDED LIMIT 4.0 - 6.0 ADA THERAPEUTIC TARGET < 7.0 ACTION SUGGESTED > 7.0 Performed By: #### L IPID, TSH, ALT, BMP, AST #### [facility] [address] [place] [address] Dr. Linda Shabazz Glucose [Mass/Vol] 146 mg/dL Normal [facility] Comment on above: Performed By: #### L IPID, TSH, ALT, BMP, AST #### [facility] [address] [place] [address] Dr. Linda Shabazz HbA1c (Bld) [Mass fraction] 6.7 % Critically high 4.5-6.2 [facility] Comment on above: Performed By: #### L IPID, TSH, ALT, BMP, AST #### [facility] [address] [place] [address] Dr. Linda Shabazz CBC AUTO DIFFon 03-23-2022 BASO # 0.0 103/ul Normal 0.0-0.1 [facility] Comment on above: Performed By: #### C BC #### [facility] [address] [place] [address] Dr. Linda Shabazz Basophils/100 WBC (Bld) 0.3 % Normal 0.2-2.0 [facility] Comment on above: Performed By: #### C BC #### [facility] [address] [place] [address] Dr. Linda Shabazz EO # 0.2 103/ul Normal 0.0-0.7 [facility] Comment on above: Performed By: #### C BC #### [facility] [address] [address] [address] Linda Shabazz Eosinophils/100 WBC (Bld) 1.8 % Normal 0.9-7.0 [facility] Comment on above: Performed By: #### C BC #### [facility] [address] [place] [address] Dr. Linda Shabazz Erythrocyte distribution width (RBC) [Ratio] 13.9 % Normal 11.0-15.0 [facility] Comment on above: Performed By: #### C BC #### [facility] [address] [place] [address] Dr. Linda Shabazz Hematocrit (Bld) [Volume fraction] 39.9 % Normal 36.0-48.0 [facility] Comment on above: Performed By: #### C BC #### [facility] [address] [place] [address] Dr. Linda Shabazz Hemoglobin (Bld) [Mass/Vol] 13.2 g/dL Normal 12.0-16.0 [facility] Comment on above: Performed By: #### C BC #### [facility] [address] [place] [address] Dr. Linda Shabazz IG # 0.05 10e3/ul Critically high 0.00-0.03 [facility] Comment on above: Performed By: #### C BC #### [facility] [address] [place] [address] Dr. Linda Shabazz IG % 0.6 % Critically high 0.0-0.5 [facility] Comment on above: Performed By: #### C BC #### [facility] [address] [place] [address] Dr. Linda Shabazz LYMPH # 1.2 103/ul Normal 1.2-3.8 [facility] Comment on above: Performed By: #### C BC #### [facility] [address] [place] [address] Dr. Linda Shabazz Lymphocytes/100 WBC (Bld) 14.2 % Critically low 20.5-60.0 [facility] Comment on above: Performed By: #### C BC #### [facility] [address] [address] [address] Linda Shabazz MANUAL DIFF REQ NO Normal [facility] Comment on above: Performed By: #### C BC #### [facility] [address] [place] [address] Dr. Linda Shabazz MCH (RBC) [Entitic mass] 28.7 pg Normal 26.7-34.0 [facility] Comment on above: Performed By: #### C BC #### [facility] [address] [place] [address] Dr. Linda Shabazz MCHC (RBC) [Mass/Vol] 33.1 g/dL Normal 29.9-35.2 [facility] Comment on above: Performed By: #### C BC #### [facility] [address] [place] [address] Dr. Linda Shabazz MCV (RBC) [Entitic vol] 86.7 fL Normal 81.0-99.0 [facility] Comment on above: Performed By: #### C BC #### [facility] [address] [place] [address] Dr. Linda Shabazz MONO # 0.6 103/ul Normal 0.3-0.8 [facility] Comment on above: Performed By: #### C BC #### [facility] [address] [place] [address] Dr. Linda Shabazz Monocytes/100 WBC (Bld) 7.3 % Normal 1.7-12.0 [facility] Comment on above: Performed By: #### C BC #### [facility] [address] [place] [address] Dr. Linda Shabazz NEUT # 6.6 103/ul Critically high 1.4-6.5 [facility] Comment on above: Performed By: #### C BC #### [facility] [address] [place] [address] Dr. Linda Shabazz Neutrophils/100 WBC (Bld) 75.8 % Critically high 43.0-75.0 [facility] Comment on above: Performed By: #### C BC #### [facility] [address] [place] [address] Dr. Linda Shabazz Platelet mean volume (Bld) [Entitic vol] 9.6 fL Normal 9.5-13.5 [facility] Comment on above: Performed By: #### C BC #### [facility] [address] [place] [address] Dr. Linda Shabazz PLT 223 103/ul Normal 150-450 [facility] Comment on above: Performed By: #### C BC #### [facility] [address] [place] [address] Dr. Linda Shabazz RBC 4.60 106/ul Normal 4.20-5.40 [facility] Comment on above: Performed By: #### C BC #### [facility] [address] [place] [address] Dr. Linda Shabazz WBC 8.7 103/ul Normal 4.0-11.0 [facility] Comment on above: Performed By: #### C BC #### [facility] [address] [place] [address] HEAD WO CONon [...] HORACE WELCH Date: 2022-03-23 15:37 Normal [facility] PROF 14(COMP METB)on 022 Albumin [Mass/Vol] 3.7 g/dL Normal 3.4-5.0 [facility] Comment on above: Performed By: #### L IPID, TSH, ALT, BMP, AST #### [facility] [address] [address] [address] Linda Shabazz Albumin/Globulin [Mass ratio] 1.0 {ratio} Normal [facility] Comment on above: Performed By: #### L IPID, TSH, ALT, BMP, AST #### [facility] [address] [place] [address] Dr. Linda Shabazz ALP [Catalytic activity/Vol] 83 U/L Normal 46-116 [facility] Comment on above: Performed By: #### L IPID, TSH, ALT, BMP, AST #### [facility] [address] [place] [address] Dr. Linda Shabazz ALT [Catalytic activity/Vol] 26 U/L Normal 14-59 [facility] Comment on above: Performed By: #### L IPID, TSH, ALT, BMP, AST #### [facility] [address] [place] [address] Dr. Linda Shabazz Anion gap [Moles/Vol] 18.1 mmol/L Normal [facility] Comment on above: Performed By: #### L IPID, TSH, ALT, BMP, AST #### [facility] [address] [place] [address] Dr. Linda Shabazz AST [Catalytic activity/Vol] 22 U/L Normal 15-37 [facility] Comment on above: Performed By: #### L IPID, TSH, ALT, BMP, AST #### [facility] [address] [place] [address] Dr. Lnida Shabazz Bilirubin [Mass/Vol] 0.3 mg/dL Normal 0.2-1.0 [facility] Comment on above: Performed By: #### L IPID, TSH, ALT, BMP, AST #### [facility] [address] [place] [address] Dr. Linda Shabazz Calcium [Mass/Vol] 9.2 mg/dL Normal 8.5-10.1 [facility] Comment on above: Performed By: #### L IPID, TSH, ALT, BMP, AST #### [facility] [address] [place] [address] Dr. Linda Shabazz Chloride [Moles/Vol] 104 mmol/L Normal 98-107 [facility] Comment on above: Performed By: #### L IPID, TSH, ALT, BMP, AST #### [facility] [address] [place] [address] Dr. Linda Shabazz CO2 [Moles/Vol] 24.0 mmol/L Normal 21.0-32.0 [facility] Comment on above: Performed By: #### L IPID, TSH, ALT, BMP, AST #### [facility] [address] [place] [address] Dr. Linda Shabazz Creatinine [Mass/Vol] 0.65 mg/dL Normal 0.55-1.02 [facility] Comment on above: Performed By: #### L IPID, TSH, ALT, BMP, AST #### [facility] [address] [place] [address] Dr. Linda Shabazz EGFR-AF MACANESE >60 Normal >=60 [facility] Comment on above: Performed By: #### L IPID, TSH, ALT, BMP, AST #### [facility] [address] [place] [address] Dr. Linda Shabazz EGFR-NON AF MACANESE >60 Normal >=60 [facility] Comment on above: Performed By: #### L IPID, TSH, ALT, BMP, AST #### [facility] [address] [place] [address] Dr. Linda Shabazz Globulin (S) [Mass/Vol] 3.6 g/dL Normal [facility] Comment on above: Performed By: #### L IPID, TSH, ALT, BMP, AST #### [facility] [address] [address] [address] Linda Shabazz Glucose [Mass/Vol] 91 mg/dL Normal 74-106 [facility] Comment on above: Performed By: #### L IPID, TSH, ALT, BMP, AST #### [facility] [address] [place] [address] Dr. Linda Shabazz Potassium [Moles/Vol] 4.1 mmol/L Normal 3.5-5.1 [facility] Comment on above: Performed By: #### L IPID, TSH, ALT, BMP, AST #### [facility] [address] [address] [address] Linda Shabazz Protein [Mass/Vol] 7.3 g/dL Normal 6.4-8.2 [facility] Comment on above: Performed By: #### L IPID, TSH, ALT, BMP, AST #### [facility] [address] [place] [address] Dr. Linda Shabazz Sodium [Moles/Vol] 142 mmol/L Normal 136-145 [facility] Comment on above: Performed By: #### L IPID, TSH, ALT, BMP, AST #### [facility] [address] [address] [address] Linda Shabazz Urea nitrogen [Mass/Vol] 9.0 mg/dL Normal 7.0-18.0 [facility] Comment on above: Performed By: #### L IPID, TSH, ALT, BMP, AST #### [facility] [address] [place] [address] Dr. Linda Shabazz Urea nitrogen/Creatinine [Mass ratio] 13.8 mg/mg Normal [facility] Comment on above: Performed By: #### L IPID, TSH, ALT, BMP, AST #### [facility] [address] [place] [address] Dr. Linda Shabazz TROPONIN, HIGH SENSITIVITYon 03-23-2022 HSTROP <4.0 Normal 4.0-51.3 [facility] Comment on above: Result Comment: CUT- OFF POINTS HAVE BEEN ESTABLISHED BASED ON THE FOURTH UNIVERSAL DEFINITIONS OF MYOCARDIAL INFARCTION. THE UPPER REFERENCE LIMIT (URL) OF TROPONIN, DEFINED THE 99TH PERCENTILE OF cTnI DISTRIBUTION IN A REFERENCE POPULATION, HAS BEEN CONFIRMED THE DECISION THRESHOLD FOR MD DIAGNOSIS. Performed By: #### L IPID, TSH, ALT, BMP, AST #### [facility] [address] [place], [place] [address] Dr. Linda Shabazz XR CHEST 2 Von [...] by: HORACE WELCH Date: 2022-03-23 14:00 Normal [facility] XR SHOULDER LT 2V or >on XR [...] by: HORACE WELCH Date: 2022-03-23 14:12 Normal [facility] CBC AUTO DIFFon 02-09-2022 BASO # 0.0 103/ul Normal 0.0-0.1 [facility] Comment on above: Performed By: #### C BC #### [facility] [address] [place], [place] [address] Dr. Linda Shabazz Basophils/100 WBC (Bld) 0.3 % Normal 0.2-2.0 [facility] Comment on above: Performed By: #### C BC #### [facility] [address] [place], [place] [address] Dr. Linda Shabazz EO # 0.1 103/ul Normal 0.0-0.7 [facility] Comment on above: Performed By: #### C BC #### [facility] [address] [address] [address] Linda Shabazz Eosinophils/100 WBC (Bld) 1.7 % Normal 0.9-7.0 [facility] Comment on above: Performed By: #### C BC #### [facility] [address] [place] [address] Dr. Linda Shabazz Erythrocyte distribution width (RBC) [Ratio] 14.2 % Normal 11.0-15.0 [facility] Comment on above: Performed By: #### C BC #### [facility] [address] [place] [address] Dr. Linda Shabazz Hematocrit (Bld) [Volume fraction] 40.5 % Normal 36.0-48.0 [facility] Comment on above: Performed By: #### C BC #### [facility] [address] [place] [address] Dr. Linda Shabazz Hemoglobin (Bld) [Mass/Vol] 12.7 g/dL Normal 12.0-16.0 [facility] Comment on above: Performed By: #### C BC #### [facility] [address] [place] [address] Dr. Linda Shabazz IG # 0.06 10e3/ul Critically high 0.00-0.03 [facility] Comment on above: Performed By: #### C BC #### [facility] [address] [place] [address] Dr. Linda Shabazz IG % 0.9 % Critically high 0.0-0.5 [facility] Comment on above: Performed By: #### C BC #### [facility] [address] [place] [address] Dr. Linda Shabazz LYMPH # 1.9 103/ul Normal 1.2-3.8 [facility] Comment on above: Performed By: #### C BC #### [facility] [address] [place] [address] Dr. Linda Shabazz Lymphocytes/100 WBC (Bld) 26.9 % Normal 20.5-60.0 [facility] Comment on above: Performed By: #### C BC #### [facility] [address] [place] [address] Dr. Linda Shabazz MANUAL DIFF REQ NO Normal [facility] Comment on above: Performed By: #### C BC #### [facility] [address] [place] [address] Dr. Linda Shabazz MCH (RBC) [Entitic mass] 28.0 pg Normal 26.7-34.0 [facility] Comment on above: Performed By: #### C BC #### [facility] [address] [place] [address] Dr. Linda Shabazz MCHC (RBC) [Mass/Vol] 31.4 g/dL Normal 29.9-35.2 [facility] Comment on above: Performed By: #### C BC #### [facility] [address] [place] [address] Dr. Linda Shabazz MCV (RBC) [Entitic vol] 89.2 fL Normal 81.0-99.0 [facility] Comment on above: Performed By: #### C BC #### [facility] [address] [place] [address] Dr. Linda Shabazz MONO # 0.4 103/ul Normal 0.3-0.8 [facility] Comment on above: Performed By: #### C BC #### [facility] [address] [place] [address] Dr. Linda Shabazz Monocytes/100 WBC (Bld) 6.1 % Normal 1.7-12.0 [facility] Comment on above: Performed By: #### C BC #### [facility] [address] [place] [address] Dr. Linda Shabazz NEUT # 4.5 103/ul Normal 1.4-6.5 [facility] Comment on above: Performed By: #### C BC #### [facility] [address] [place] [address] Dr. Linda Shabazz Neutrophils/100 WBC (Bld) 64.1 % Normal 43.0-75.0 [facility] Comment on above: Performed By: #### C BC #### [facility] [address] [place] [address] Dr. Linda Shabazz Platelet mean volume (Bld) [Entitic vol] 10.1 fL Normal 9.5-13.5 [facility] Comment on above: Performed By: #### C BC #### [facility] [address] [place] [address] Dr. Linda Shabazz PLT 283 103/ul Normal 150-450 [facility] Comment on above: Performed By: #### C BC #### [facility] [address] [place] [address] Dr. Linda Shabazz RBC 4.54 106/ul Normal 4.20-5.40 [facility] Comment on above: Performed By: #### C BC #### [facility] [address] [place] [address] Dr. Linda Shabazz WBC 7.0 103/ul Normal 4.0-11.0 [facility] Comment on above: Performed By: #### C BC #### [facility] [address] [place] [address] Dr. Linda Shabazz GLYCOHEMOGLOBIN A1Con 2021 ADA RECOMMENDATION SEE BELOW Normal [facility] Comment on above: Result Comment: ADA RECOMMENDED LIMIT 4.0 - 6.0 ADA THERAPEUTIC TARGET < 7.0 ACTION SUGGESTED > 7.0 Performed By: #### L IPID, TSH, ALT, BMP, AST #### [facility] [address] [place] [address] Dr. Linda Shabazz Glucose [Mass/Vol] 146 mg/dL Normal [facility] Comment on above: Performed By: #### L IPID, TSH, ALT, BMP, AST #### [facility] [address] [place] [address] Dr. Linda Shabazz HbA1c (Bld) [Mass fraction] 6.7 % Critically high 4.5-6.2 [facility] Comment on above: Performed By: #### L IPID, TSH, ALT, BMP, AST #### [facility] [address] [place] [address] Dr. Linda Shabazz LIPID PROFILEon 02-09-2022 CHOL-HDL RATIO NORM SEE BELOW Normal [facility] Comment on above: Result Comment: 3.3 - 4.4 LOW RISK 4.4 - 7.1 AVERAGE RISK 7.1 - 11.0 MODERATE RISK >11.0 HIGH RISK Performed By: #### L IPID, TSH, ALT, BMP, AST #### [facility] [address] [address] [address] Linda Shabazz Cholesterol [Mass/Vol] 130 mg/dL Normal <=200 [facility] Comment on above: Performed By: #### L IPID, TSH, ALT, BMP, AST #### [facility] [address] [address] [address] Linda Shabazz Cholesterol in HDL [Mass/Vol] 38 mg/dL Critically low 40-60 [facility] Comment on above: Performed By: #### L IPID, TSH, ALT, BMP, AST #### [facility] [address] [address] [address] Linda Shabazz Cholesterol in LDL [Mass/Vol] 51.0 mg/dL Normal [facility] Comment on above: Performed By: #### L IPID, TSH, ALT, BMP, AST #### [facility] [address] [address] [address] Linda Shabazz Cholesterol.total/Ch olesterol in HDL [Mass ratio] 3.4 {ratio} Normal [facility] Comment on above: Performed By: #### L IPID, TSH, ALT, BMP, AST #### [facility] [address] [address] [address] Linda Shabazz HDL NORMAL > or = 60 mg/dl - LOW CARDIOVASCULAR RISK <40 mg/dl - HIGH CARDIOVASCULAR RISK Normal [facility] Comment on above: Performed By: #### L IPID, TSH, ALT, BMP, AST #### [facility] [address] [place] [address] Dr. Linda Shabazz LDL CALC NORMAL SEE BELOW Normal [facility] Comment on above: Result Comment: <100 mg/dl OPTIMAL 100 - 129 mg/dl NEAR OR ABOVE OPTIMAL 130 - 159 mg/dl BORDERLINE HIGH 160 - 189 mg/dl HIGH >190 mg/dl VERY HIGH Performed By: #### L IPID, TSH, ALT, BMP, AST #### [facility] [address] [place] [address] Dr. Linda Shabazz Triglyceride [Mass/Vol] 205 mg/dL Critically high <=150 [facility] Comment on above: Performed By: #### L IPID, TSH, ALT, BMP, AST #### [facility] [address] [address] [address] Linda Shabazz VLDL CALC 41.0 mg/dL Normal [facility] Comment on above: Performed By: #### L IPID, TSH, ALT, BMP, AST #### [facility] [address] [place] [address] Dr. Linda Shabazz MICROALBUMIN, RAND URon - mALB <1.3 Normal <=30.0 [facility] Comment on above: Performed By: #### L IPID, TSH, ALT, BMP, AST #### [facility] [address] [place] [address] Dr. Linda Shabazz PROF CHEM 8 (BAS METB)on Anion gap [Moles/Vol] 11.9 mmol/L Normal [facility] Comment on above: Performed By: #### L IPID, TSH, ALT, BMP, AST #### [facility] [address] [place] [address] Dr. Linda Shabazz Calcium [Mass/Vol] 8.9 mg/dL Normal 8.5-10.1 [facility] Comment on above: Performed By: #### L IPID, TSH, ALT, BMP, AST #### [facility] [address] [place] [address] Dr. Linda Shabazz Chloride [Moles/Vol] 106 mmol/L Normal 98-107 [facility] Comment on above: Performed By: #### L IPID, TSH, ALT, BMP, AST #### [facility] [address] [place] [address] Dr. Linda Shabazz CO2 [Moles/Vol] 27.5 mmol/L Normal 21.0-32.0 [facility] Comment on above: Performed By: #### L IPID, TSH, ALT, BMP, AST #### [facility] [address] [address] [address] Linda Shabazz Creatinine [Mass/Vol] 0.69 mg/dL Normal 0.55-1.02 [facility] Comment on above: Performed By: #### L IPID, TSH, ALT, BMP, AST #### [facility] [address] [address] [address] Linda Shabazz EGFR-AF MACANESE >60 Normal >=60 [facility] Comment on above: Performed By: #### L IPID, TSH, ALT, BMP, AST #### [facility] [address] [place] [address] Dr. Linda Shabazz EGFR-NON AF MACANESE >60 Normal >=60 [facility] Comment on above: Performed By: #### L IPID, TSH, ALT, BMP, AST #### [facility] [address] [address] [address] Linda Shabazz Glucose [Mass/Vol] 198 mg/dL Critically high 74-106 T [facility] Comment on above: Performed By: #### L IPID, TSH, ALT, BMP, AST #### [facility] [address] [place] [address] Dr. Linda Shabazz Potassium [Moles/Vol] 4.4 mmol/L Normal 3.5-5.1 [facility] Comment on above: Performed By: #### L IPID, TSH, ALT, BMP, AST #### [facility] [address] [place] [address] Dr. Linda Shabazz Sodium [Moles/Vol] 141 mmol/L Normal 136-145 [facility] Comment on above: Performed By: #### L IPID, TSH, ALT, BMP, AST #### [facility] [address] [place] [address] Dr. Linda Shabazz Urea nitrogen [Mass/Vol] 9.0 mg/dL Normal 7.0-18.0 [facility] Comment on above: Performed By: #### L IPID, TSH, ALT, BMP, AST #### [facility] [address] [place] [address] Dr. Linda Shabazz Urea nitrogen/Creatinine [Mass ratio] 13.0 mg/mg Normal [facility] Comment on above: Performed By: #### L IPID, TSH, ALT, BMP, AST #### [facility] [address] [place] [address] Dr. Linda Shabazz SGOTon 02-09-2022 AST [Catalytic activity/Vol] 12 U/L Critically low 15-37 [facility] Comment on above: Performed By: #### L IPID, TSH, ALT, BMP, AST #### [facility] [address] [place] [address] Dr. Linda Shabazz SGPTon 02-09-2022 ALT [Catalytic activity/Vol] 25 U/L Normal 14-59 [facility] Comment on above: Performed By: #### L IPID, TSH, ALT, BMP, AST #### [facility] [address] [place] [address] Dr. Linda Shabazz TSHon 02-09-2022 TSH 2.110 uIU/mL Normal 0.358-3.740 [facility] Comment on above: Performed By: #### L IPID, TSH, ALT, BMP, AST #### [facility] [address] [place] [address] Dr. Linda Shabazz Hemoglobin A1Con 05-21-2020 HbA1c (Bld) [Mass fraction] 8.1 % High 4.0-6.0 [facility] Comment on above: Performed By: #### G LYHGB, PROL, LIPR #### [facility] [address] [place] [address] Landscape Nurseryman: Grant Betancourt MD #### BMP, CDP #### [facility] [address] [place] [address] Landscape Nurseryman: Jhonatan Shelton MD HbA1c (Bld) [Mass fraction] 186 mg/dL Normal [facility] Comment on above: Result Comment: The ADA and AACC recommend providing the estimated average glucose result to permit better patient understanding of their HBA1c result. Performed By: #### G LYHGB, PROL, LIPR #### [facility] [employer] [address] [place] [address] Landscape Nurseryman: Grant Betancourt MD #### BMP, CDP #### [facility] [address] [place] [address] Landscape Nurseryman: Jhonatan Shelton MD Basic Metabolic Panelon 04-29 Anion gap [Moles/Vol] 14 mmol/L 9 - 17 mmol/L [place] Bun/Cre Ratio 14 [place] Calcium [Mass/Vol] 9.3 mg/dL 8.6 - 10. 4 mg/dL [place] Chloride [Moles/Vol] 103 mmol/L 98 - 10 7 mmol/L [place] CO2 [Moles/Vol] 22 mmol/L 20 - 31 mmol/L [place] Creatinine [Mass/Vol] 0.58 mg/dL 0.5 - 0.9 mg/dL [place] GFR >60 >60 mL/min [place] GFR Non- >60 >60 mL/min [place] Glucose [Mass/Vol] 210 mg/dL High 70 - 99 mg/dL [place], [place] Interpretation and review of laboratory results Abnormal [place] Potassium [Moles/Vol] 4.2 mmol/L 3.7 - 5.3 mmol/L [place] Sodium [Moles/Vol] 139 mmol/L 135 - 144 mmol/L [place] Urea nitrogen [Mass/Vol] 8 mg/dL 6 - 20 mg/dL [place] Basic Metabolic Profon 05-19 (cont.) Normal [facility] Comment on above: Result Comment: Aver age GFR for 40-49 years old: 99 mL/min/1.73sq m Chronic Kidney Disease: <60 mL/min/1.73sq m Kidney failure: <15 mL/min/1.73sq m eGFR calculated using average adult body mass. Additional eGFR calculator available at: http://www.Presentigo.com/multiple_crcl_2012.htm Performed By: #### G LYHGB, PROL, LIPR #### [facility] [address] [place] [address] Landscape Nurseryman: Grant Betancourt MD #### BMP, CDP #### [address] [place], [place] [phone] Landscape Nurseryman: Jhonatan Shelton MD Anion gap [Moles/Vol] 14 mmol/L Normal 9-17 [facility] Comment on above: Performed By: #### G LYHGB, PROL, LIPR #### [address] [address] Landscape Nurseryman: Grant Betancourt MD #### BMP, CDP #### [address] [place] [id number] Landscape Nurseryman: Jhonatan Shelton MD BUN/CRE Ratio 14 Normal 9-20 [facility] Comment on above: Performed By: #### G LYHGB, PROL, LIPR #### [address] [address] Landscape Nurseryman: Grant Betancourt MD #### BMP, CDP #### [address] [place], [place] [id number] Landscape Nurseryman: Jhonatan Shelton MD Calcium [Mass/Vol] 9.3 mg/dL Normal 8.6-10.4 [facility] Comment on above: Performed By: #### G LYHGB, PROL, LIPR #### [address] [address] Landscape Nurseryman: Grant Betancourt MD #### BMP, CDP #### [address] [place], [place] 2237183 Landscape Nurseryman: Jhonatan Shelton MD Chloride [Moles/Vol] 103 mmol/L Normal 98-107 [facility] Comment on above: Performed By: #### G LYHGB, PROL, LIPR #### [address] [address] Landscape Nurseryman: Grant Betancourt MD #### BMP, CDP #### [facility] [address] [place], [place] [id number] Landscape Nurseryman: Jhonatan Shelton MD CO2 [Moles/Vol] 22 mmol/L Normal 20-31 [facility] Comment on above: Performed By: #### G LYHGB, PROL, LIPR #### [address] [address] Landscape Nurseryman: Grant Betancourt MD #### BMP, CDP #### [facility] [address] [place], [place] 6936083 Landscape Nurseryman: Jhonatan Shelton MD Creatinine [Mass/Vol] 0.58 mg/dL Normal 0.50-0.90 [facility] Comment on above: Performed By: #### G LYHGB, PROL, LIPR #### [address] [address] Landscape Nurseryman: Grant Betancourt MD #### BMP, CDP #### [facility] [address] [place], [place] [phone] Landscape Nurseryman: Jhonatan Shelton MD GFR, Amer >60 Normal >60 [facility] Comment on above: Performed By: #### G LYHGB, PROL, LIPR #### [address] [address] Landscape Nurseryman: Grant Betancourt MD #### BMP, CDP #### [facility] [address] [place], [place] [id number] Landscape Nurseryman: Jhonatan Shelton MD GFR,non Amer >60 Normal >60 [facility] Comment on above: Performed By: #### G LYHGB, PROL, LIPR #### [id number] [place] [address] Landscape Nurseryman: Grant Betancourt MD #### BMP, CDP #### [facility] [address] [place], [place] 5741283 Landscape Nurseryman: Jhonatan Shelton MD Glucose [Mass/Vol] 210 mg/dL High 70-99 [facility] Comment on above: Performed By: #### G LYHGB, PROL, LIPR #### [address] [address] Landscape Nurseryman: Grant Betancourt MD #### BMP, CDP #### [address] [place], [place] [phone] Landscape Nurseryman: Jhonatan Shelton MD Potassium [Moles/Vol] 4.2 mmol/L Normal 3.7-5.3 [facility] Comment on above: Performed By: #### G LYHGB, PROL, LIPR #### [address] [address] Landscape Nurseryman: Grant Betancourt MD #### BMP, CDP #### [address] [place], [place] [phone] Landscape Nurseryman: Jhonatan Shelton MD Sodium [Moles/Vol] 139 mmol/L Normal 135-144 [facility] Comment on above: Performed By: #### G LYHGB, PROL, LIPR #### [address] [address] Landscape Nurseryman: Grant Betancourt MD #### BMP, CDP #### [address] [place], [place] 2376183 Landscape Nurseryman: Jhonatan Shelton MD Staging: Normal [facility] Comment on above: Result Comment: Stag e 1: Some kidney damage normal GFR Stage 2: Mild kidney damage GFR 60-89 Stage 3: Moderate kidney damage GFR 30-59 Stage 4: Severe kidney damage GFR 15-29 Stage 5: Severe kidney damage GFR <15 ESRD - chronic treatment by dialysis or transplant Performed By: #### G LYHGB, PROL, LIPR #### [facility] [employer] [address] [place], [place] [id number] Landscape Nurseryman: Grant Betancourt MD #### BMP, CDP #### [facility] [address] [place] [address] [place] [address] Landscape Nurseryman: Jhonatan Shelton MD Urea nitrogen [Mass/Vol] 8 mg/dL Normal 6-20 [facility] Comment on above: Performed By: #### G LYHGB, PROL, LIPR #### [facility] [employer] [address] [place], [place] [phone] Landscape Nurseryman: Grant Betancourt MD #### BMP, CDP #### [facility] [address] [place] [address] [place] [address] Landscape Nurseryman: Jhonatan Shelton MD CBC Auto Differentialon 04-29 Basophils (Bld) [#/Vol] 10*3/uL [place] Basophils/100 WBC (Bld) 0 % 0 - 2 % [place] Differential Type NOT REPORTED [place] Eosinophils (Bld) [#/Vol] 0.23 10*3/uL [place] Eosinophils/100 WBC (Bld) 4 % 1 - 4 % [place] Erythrocyte distribution width (RBC) [Ratio] 13.1 % 11.8 - 14.4 % [place] Hematocrit (Bld) [Volume fraction] 42.0 % 36.3 - 47.1 % [place] Hemoglobin (Bld) [Mass/Vol] 13.6 g/dL 11.9 - 15.1 g/dL [place] Immature granulocytes (Bld) [#/Vol] 0.07 10*3/uL [place] Immature granulocytes (Bld) [#/Vol] 1 % High 0 [place] Interpretation and review of laboratory results Abnormal [place] Lymphocytes (Bld) [#/Vol] 1.75 10*3/uL [place] Lymphocytes/100 WBC (Bld) 28 % 24 - 43 % [place] MCH (RBC) [Entitic mass] 28.7 pg 25.2 - 33.5 pg [place] MCHC (RBC) [Mass/Vol] 32.4 g/dL 28.4 - 34.8 g/dL [place] MCV (RBC) [Entitic vol] 88.6 fL 82.6 - 102.9 fL [place] Monocytes (Bld) [#/Vol] 0.29 10*3/uL [place] Monocytes/100 WBC (Bld) 5 % 3 - 12 % [place] Platelet mean volume (Bld) [Entitic vol] 9.2 fL 8.1 - 13.5 fL [place] Platelets (Bld) [#/Vol] 262 10*3/uL [place] Platelets (Bld) [#/Vol] NOT REPORTED [place] RBC (Bld) [#/Vol] 4.74 10*6/uL 3.95 - 5.1 1 m/uL [place] RBC morphology finding Nom (Bld) NOT REPORTED [place] Segmented neutrophils/100 WBC (Bld) 62 % 36 - 65 % [place] Segs Absolute 3.99 [place] WBC (Bld) [#/Vol] 6.4 10*3/uL [place] WBC (Bld) [#/Vol] 0.0 10*3/uL 0.0 per 10 0 WBC [place] WBC Morphology NOT REPORTED [place] CBC with Diffon 05-19-2020 Abs. Basophil <0.03 Normal 0.00-0.20 [facility] Comment on above: Performed By: #### G LYHGB, PROL, LIPR #### [facility] [employer] [facility] [place] [address] Landscape Nurseryman: Grant Betancourt MD #### BMP, CDP #### [facility] [address] [place] [address] Landscape Nurseryman: Jhonatan Shelton MD Abs.Imm.Granulocyte 0.07 k/uL Normal 0.00-0.30 [facility] Comment on above: Performed By: #### G LYHGB, PROL, LIPR #### [address] [id number] Landscape Nurseryman: Grant Betancourt MD #### BMP, CDP #### [facility] [address] [place] [address] [address] [place] [phone] Landscape Nurseryman: Jhonatan Shelton MD Abs.Neutrophil (Seg) 3.99 k/uL Normal 1.50-8.10 [facility] Comment on above: Performed By: #### G LYHGB, PROL, LIPR #### [address] [id number] Landscape Nurseryman: Grant Betancourt MD #### BMP, CDP #### [facility] [address] [place] [address] [address] [place] 7[address]9083 Landscape Nurseryman: Jhonatan Shelton MD Basophils/100 WBC (Bld) 0 % Normal 0-2 [facility] Comment on above: Performed By: #### G LYHGB, PROL, LIPR #### [address] [id number] Landscape Nurseryman: Grant Betancourt MD #### BMP, CDP #### [facility] [address] [place] [address] Landscape Nurseryman: Jhonatan Shelton MD Eosinophils (Bld) [#/Vol] 0.23 10*3/uL Normal 0.00-0.44 [facility] Comment on above: Performed By: #### G LYHGB, PROL, LIPR #### [address] [id number] Landscape Nurseryman: Grant Betancourt MD #### BMP, CDP #### [facility] [address] [place] [address] Landscape Nurseryman: Jhonatan Shelton MD Eosinophils/100 WBC (Bld) 4 % Normal 1-4 [facility] Comment on above: Performed By: #### G LYHGB, PROL, LIPR #### [address] [id number] Landscape Nurseryman: Grant Betancourt MD #### BMP, CDP #### [facility] [address] [place] [phone] Landscape Nurseryman: Jhonatan Shelton MD Erythrocyte distribution width (RBC) [Ratio] 13.1 % Normal 11.8-14.4 [facility] Comment on above: Performed By: #### G LYHGB, PROL, LIPR #### [address] [id number] Landscape Nurseryman: Grant Betancourt MD #### BMP, CDP #### [address] [place] [phone] Landscape Nurseryman: Jhonatan Shelton MD Hematocrit (Bld) [Volume fraction] 42.0 % Normal 36.3-47.1 [facility] Comment on above: Performed By: #### G LYHGB, PROL, LIPR #### [address] [address] Landscape Nurseryman: Grant Betancourt MD #### BMP, CDP #### [address] [place] [address] Landscape Nurseryman: Jhonatan Shelton MD Hemoglobin (Bld) [Mass/Vol] 13.6 g/dL Normal 11.9-15.1 [facility] Comment on above: Performed By: #### G LYHGB, PROL, LIPR #### [address] [address] Landscape Nurseryman: Grant Betancourt MD #### BMP, CDP #### [facility] [address] [place] [address] Landscape Nurseryman: Jhonatan Shelton MD Immature granulocytes (Bld) [#/Vol] 1 % High 0 [facility] Comment on above: Performed By: #### G LYHGB, PROL, LIPR #### [address] [address] Landscape Nurseryman: Grant Betancourt MD #### BMP, CDP #### [facility] [address] [place] [address]83 Landscape Nurseryman: Jhonatan Shelton MD Lymphocytes (Bld) [#/Vol] 1.75 10*3/uL Normal 1.10-3.70 [facility] Comment on above: Performed By: #### G LYHGB, PROL, LIPR #### [address] [id number] Landscape Nurseryman: Grant Betancourt MD #### BMP, CDP #### [address] [place] [phone] Landscape Nurseryman: Jhonatan Shelton MD Lymphocytes/100 WBC (Bld) 28 % Normal 24-43 [facility] Comment on above: Performed By: #### G LYHGB, PROL, LIPR #### [address] [address] Landscape Nurseryman: Grant Betancourt MD #### BMP, CDP #### [facility] [address] [place] [phone] Landscape Nurseryman: Jhonatan Shelton MD MCH (RBC) [Entitic mass] 28.7 pg Normal 25.2-33.5 [facility] Comment on above: Performed By: #### G LYHGB, PROL, LIPR #### [address] [address] Landscape Nurseryman: Grant Betancourt MD #### BMP, CDP #### [address] [place] [phone] Landscape Nurseryman: Jhonatan Shelton MD MCHC (RBC) [Mass/Vol] 32.4 g/dL Normal 28.4-34.8 [facility] Comment on above: Performed By: #### G LYHGB, PROL, LIPR #### [address] [id number] Landscape Nurseryman: Grant Betancourt MD #### BMP, CDP #### [address] [place] [phone] Landscape Nurseryman: Jhonatan Shelton MD MCV (RBC) [Entitic vol] 88.6 fL Normal 82.6-102.9 [facility] Comment on above: Performed By: #### G LYHGB, PROL, LIPR #### [address] [phone] Landscape Nurseryman: Grant Betancourt MD #### BMP, CDP #### [address] [place] [phone] Landscape Nurseryman: Jhonatan Shelton MD Monocytes (Bld) [#/Vol] 0.29 10*3/uL Normal 0.10-1.20 [facility] Comment on above: Performed By: #### G LYHGB, PROL, LIPR #### [address] [id number] Landscape Nurseryman: Grant Betancourt MD #### BMP, CDP #### [address] [place] [address] Landscape Nurseryman: Jhonatan Shelton MD Monocytes/100 WBC (Bld) 5 % Normal 3-12 [facility] Comment on above: Performed By: #### G LYHGB, PROL, LIPR #### [address] [address] Landscape Nurseryman: Grant Betancourt MD #### BMP, CDP #### [facility] [address] [place] [address] Landscape Nurseryman: Jhonatan Shelton MD Neutrophil (Seg) 62 % Normal 36-65 [facility] Comment on above: Performed By: #### G LYHGB, PROL, LIPR #### [address] [address] Landscape Nurseryman: Grant Betancourt MD #### BMP, CDP #### [facility] [address] [place] [address] [place] [address] Landscape Nurseryman: Jhonatan Shelton MD NRBC Automated 0.0 per 100 WBC Normal 0.0 [facility] Comment on above: Performed By: #### G LYHGB, PROL, LIPR #### [address] [address] Landscape Nurseryman: Grant Betancourt MD #### BMP, CDP #### [facility] [address] [place] [address] [place] [address] Landscape Nurseryman: Jhonatan Shelton MD Platelet mean volume (Bld) [Entitic vol] 9.2 fL Normal 8.1-13.5 [facility] Comment on above: Performed By: #### G LYHGB, PROL, LIPR #### [address] [address] Landscape Nurseryman: Grant Betancourt MD #### BMP, CDP #### [facility] [address] [place] [address] [place] [address] Landscape Nurseryman: Jhonatan Shelton MD Platelets (Bld) [#/Vol] 262 10*3/uL Normal 138-453 [facility] Comment on above: Performed By: #### G LYHGB, PROL, LIPR #### [address] [address] Landscape Nurseryman: Grant Betancourt MD #### BMP, CDP #### [address] [place], [place] 7392083 Landscape Nurseryman: Jhonatan Shelton MD RBC (Bld) [#/Vol] 4.74 10*6/uL Normal 3.95-5.11 [facility] Comment on above: Performed By: #### G LYHGB, PROL, LIPR #### [address] [address] Landscape Nurseryman: Grant Betancourt MD #### BMP, CDP #### [address] [place] [address] Landscape Nurseryman: Jhonatan Shelton MD WBC (Bld) [#/Vol] 6.4 10*3/uL Normal 3.5-11.3 [facility] Comment on above: Performed By: #### G LYHGB, PROL, LIPR #### [address] [address] Landscape Nurseryman: Grant Betancourt MD #### BMP, CDP #### [address] [place], [place] [phone] Landscape Nurseryman: Jhonatan Shelton MD Auto Diff Performed NOT REPORTED Normal [facility] Comment on above: Performed By: #### G LYHGB, PROL, LIPR #### [address] [address] Landscape Nurseryman: Grant Betancourt MD #### BMP, CDP #### [address] [place], [place] [phone] Landscape Nurseryman: Jhonatan Shelton MD Platelets (Bld) [#/Vol] NOT REPORTED Normal [facility] Comment on above: Performed By: #### G LYHGB, PROL, LIPR #### [address] [id number] Landscape Nurseryman: Grant Betancourt MD #### BMP, CDP #### [facility] [address] [place], [place] [phone] Landscape Nurseryman: Jhonatan Shelton MD RBC morphology finding Nom (Bld) NOT REPORTED Normal [facility] Comment on above: Performed By: #### G LYHGB, PROL, LIPR #### [facility] [address] [place], [place] [phone] Landscape Nurseryman: Grant Betancourt MD #### BMP, CDP #### [facility] [address] [place] [address] [address] [place], [place] [id number] Landscape Nurseryman: Jhonatan Shelton MD WBC Morphology NOT REPORTED Normal [facility] Comment on above: Performed By: #### G LYHGB, PROL, LIPR #### [address] [place] [address] Landscape Nurseryman: Grant Betancourt MD #### BMP, CDP #### [facility] [address] [place] [address] [address] [place], [place] [phone] Landscape Nurseryman: Jhonatna Shelton MD Lipid Panelon 05-19-2020 Cholesterol [Mass/Vol] 99 mg/dL <200 [place] Comment on above: Cholesterol Guidelines: <200 Desirable 200-240 Borderline >240 Undesirable Cholesterol in HDL [Mass/Vol] 30 mg/dL Low >40 [place] Comment on above: HDL Guidelines: <40 Undesirable 40-59 Borderline >59 Desirable Cholesterol in LDL [Mass/Vol] 15 mg/dL 0 - 130 mg/dL [place] Comment on above: LDL Guidelines: <100 Desirable 100-129 Near to/above Desirable 130-159 Borderline >159 Undesirable Direct (measured) LDL and calculated LDL are not interchangeable tests. Cholesterol in VLDL [Mass/Vol] NOT REPORTED High 1 - 30 mg/dL [place] Cholesterol.total/Ch olesterol in HDL [Mass ratio] 3.3 {ratio} <5 [place] Interpretation and review of laboratory results Abnormal [place] Triglyceride [Mass/Vol] 270 mg/dL High <150 [place] Comment on above: Triglyceride Guidelines: <150 Desirable 150-199 Borderline 200-499 High >499 Very high Based on AHA Guidelines for fasting triglyceride, May 2012. Lipid Profileon 05-19-2020 Cholesterol [Mass/Vol] 99 mg/dL Normal <200 [facility] Comment on above: Result Comment: Cholesterol Guidelines: <200 Desirable 200-240 Borderline >240 Undesirable Performed By: #### G LYHGB, PROL, LIPR #### [address] [address] Landscape Nurseryman: Grant Betancourt MD #### BMP, CDP #### [address] [place] [address] Landscape Nurseryman: Jhonatan Shelton MD Cholesterol in HDL [Mass/Vol] 30 mg/dL Low >40 [facility] Comment on above: Result Comment: HDL Guidelines: <40 Undesirable 40-59 Borderline >59 Desirable Performed By: #### G LYHGB, PROL, LIPR #### [address] [address] Landscape Nurseryman: Grant Betancourt MD #### BMP, CDP #### [address] [place] [address] Landscape Nurseryman: Jhonatan Shelton MD Cholesterol in LDL [Mass/Vol] 15 mg/dL Normal 0-130 [facility] Comment on above: Result Comment: LDL Guidelines: <100 Desirable 100-129 Near to/above Desirable 130-159 Borderline >159 Undesirable Direct (measured) LDL and calculated LDL are not interchangeable tests. Performed By: #### G LYHGB, PROL, LIPR #### [address] [address] Landscape Nurseryman: Grant Betancourt MD #### BMP, CDP #### [facility] [address] [place] [address] [place] [address] Landscape Nurseryman: Jhonatan Shelton MD Cholesterol.total/Ch olesterol in HDL [Mass ratio] 3.3 {ratio} Normal <5 [facility] Comment on above: Performed By: #### G LYHGB, PROL, LIPR #### [address] [place] [address] Landscape Nurseryman: Grant Betancourt MD #### BMP, CDP #### [facility] [address] [place] [address] [address] [place], [place] [id number] Landscape Nurseryman: Jhonatan Shelton MD Triglyceride [Mass/Vol] 270 mg/dL High <150 [facility] Comment on above: Result Comment: Triglyceride Guidelines: <150 Desirable 150-199 Borderline 200-499 High >499 Very high Based on AHA Guidelines for fasting triglyceride, May 2012. Performed By: #### G LYHGB, PROL, LIPR #### [id number] [place] [address] Landscape Nurseryman: Grant Betancourt MD #### BMP, CDP #### [address] [place], [place] [id number] Landscape Nurseryman: Jhonatan Shelton MD Cholesterol in VLDL [Mass/Vol] NOT REPORTED Normal 09-26 [facility] Comment on above: Performed By: #### G LYHGB, PROL, LIPR #### [id number] [place] [address] Landscape Nurseryman: Grant Betancourt MD #### BMP, CDP #### [address] [place] [address] Landscape Nurseryman: Jhonatan Shelton MD Metabolic Panelon 05-19-2020 GFR/1.73 sq M predicted among non-blacks MDRD (S/P/Bld) [Vol rate/Area] [facility], [place] Comment on above: Stage 1: Some kidney [...] body mass. Additional eGFR calculator available at: http://www.Everypost/multiple_crcl_2012.htm Prolactinon 05-19-2020 Prolactin 44.31 ug/L High 4.79-23.30 [facility] Comment on above: Result Comment: The presence of macroprolactin may cause interference in female patients with various endocrinological diseases or during . Performed By: #### G LYHGB, PROL, LIPR #### [facility] [address] [place] [address] Landscape Nurseryman: Grant Betancourt MD #### BMP, CDP #### [facility] [address] [place] [address] Landscape Nurseryman: Jhonatan Shelton MD Interpretation and review of laboratory results Abnormal [place], [place] Prolactin 44.31 ug/L High 4.79 - 23.3 ug/L [place] Comment on above: The presence of macr oprolactin may cause interference in female patients with various endocrinological diseases or during . Vital Signs Date Time Vital Sign Value Performing Clinician Facility 09-29-2023 11:34-0500 Body height 160 cm Alex De La O MD Work Phone: [facility] 09-29-2023 11:34-0500 Body mass index (BMI) [Ratio] 38.44 kg/m2 Alex De La O MD Work Phone: [facility] 09-29-2023 11:34-0500 Body temperature 97.11 [degF] Alex De La O MD Work Phone: [facility] 09-29-2023 11:34-0500 Body weight 98.43 kg Alex De La O MD Work Phone: [facility] 09-29-2023 11:34-0500 Diastolic blood pressure 80 mm[Hg] Alex De La O MD Work Phone: [facility] 09-29-2023 11:34-0500 Heart rate 95 /min Alex De La O MD Work Phone: [facility] 09-29-2023 11:34-0500 SaO2% (BldA) [Mass fraction] 98 % Alex De La O MD Work Phone: [facility] 09-29-2023 11:34-0500 Systolic blood pressure 138 mm[Hg] Alex De La O MD Work Phone: [facility] 09-13-2023 17:00-0500 Body height 162.56 cm Gail Reyes Other [facility] Other 09-13-2023 17:00-0500 Body mass index (BMI) [Ratio] 36.73 kg/m2 Gail Amy Other [facility] Other 09-13-2023 17:00-0500 Body temperature 97.7 [degF] Gail Amy Other [facility] Other 09-13-2023 17:00-0500 Body weight 97.07 kg Gail Amy Other [facility] Other 09-13-2023 17:00-0500 Diastolic blood pressure 80 mm[Hg] Gail Reyes Other [facility] Other 09-13-2023 17:00-0500 Respiratory rate 18 /min Gail Reyes Other [facility] Other 09-13-2023 17:00-0500 SaO2% (BldA) [Mass fraction] 97 % Gail Reyes Other [facility] Other 09-13-2023 17:00-0500 Systolic blood pressure 122 mm[Hg] Gail Reyes Other [facility] Other 03-29-2022 12:00-0400 Body height 162.56 cm Gustavo Beyer Other [facility] Other 03-29-2022 12:00-0400 Body mass index (BMI) [Ratio] 34.84 kg/m2 Gustavo Beyer Other [facility] Other 03-29-2022 12:00-0400 Body weight 92.08 kg Gustavo Beyer Other [facility] Other Encounters Encounter Date Encounter Type Care Provider Facility Start: 03-28-2024 End: 03-28-2024 ambulatory ALEX DE LA O Not Available Start: 02-08-2024 End: 02-08-2024 ambulatory SAM PAYTON Not Available Start: 01-19-2024 End: 01-19-2024 ambulatory ALEX DE LA O Not Available Start: 11-23-2023 End: 11-23-2023 ambulatory SAM PAYTON Not Available Start: 09-29-2023 Clinisync Result Encounter Alex De La O MD Work Phone: [facility] External Department Unsolicited Start: 09-29-2023 Clinisync Result Encounter Alex De La O MD Work Phone: [facility] External Department Unsolicited Start: 09-29-2023 End: 09-29-2023 Office outpatient visit 25 minutes Alex De La O MD Work Phone: [facility] Comment on above: Type 2 diabetes jackson itus with hyperglycemia, without long-term current use of insulin ([facility]) (Primary Dx); Overactive bladder; Memory loss of; Lower extremity edema; Gastroesophageal reflux disease without esophagitis; Seasonal allergic rhinitis due to pollen Start: 09-29-2023 End: 09-29-2023 ambulatory ALEX DE LA O Not Available Start: 09-13-2023 End: 09-13-2023 ambulatory Gail Reyes Other [facility] Other Start: 09-13-2023 Office outpatient visit 15 minutes Gail Amy [facility] Start: 01-11-[address] ALEX DE LA O Facil ity:[facility] Start: 08-30-2022 End: 08-31-[address] ALEX DE LA O Facility:[facility] Start: 05-10-2022 End: 05-10-2022 ambulatory Gustavo Olexa Other [facility] Other Start: 05-10-2022 Office outpatient visit 15 minutes Gustavo Olexa [facility] Start: 03-29-2022 End: 03-29-2022 ambulatory Gustavo Olexa Other [facility] Other Start: 03-29-2022 Office outpatient ne w 30 minutes Gustavo Olexa [facility] Start: 03-23-2022 End: 03-23-2022 ambulatory XENA BLOUNT . Facility:[facility] Start: 02-09-2022 End: 02-10-[address] ALEX DE LA O Facility:[facility] Start: 05-19-2020 End: 05-20-2020 Patient encounter procedure EZIO Iva ELVINMarcia [facility] Start: 05-19-2020 End: 05-19-2020 Subsequent hospital visit by physician [facility] Lab Drawing Room [facility] Laboratory Comment on above: Arrived Procedures Date Procedure Procedure Detail Performing Clinician Start: 09-29-2023 MLR HEMOGLOBIN A1C Alex De La O MD Work Phone: Start: 05-19-2020 Assay of prolactin STEPHANIE TEIXEIRAKaylee ELVINMarcia Start: 05-19-2020 Basic metabolic pane l calcium total EZIO LANDIN Start: 05-19-2020 Blood count complete auto&auto difrntl wbc EZIO ELVINA Start: 05-19-2020 Hemoglobin glycosyla andria a1c EZIO LANDIN Start: 05-19-2020 Lipid panel EZIO Page BRANDON Start: 05-19-2020 Assay of prolactin Stephanie Landin Work Phone: Start: 05-19-2020 Basic metabolic pane l calcium total Ezio Landin Work Phone: Start: 05-19-2020 Blood count complete auto&auto difrntl wbc Ezio Landin Work Phone: Start: 05-19-2020 Lipid panel Ezio Landin Work Phone: Plan of Treatment Date Care Activity Detail Author Start: 03-28-2024 End: 03-28-2024 Patient encounter procedure 03/28/2024 9:45 AM EDT Office Visit [facility] [address] [place] [id number] Alex De La O MD [address] [place] [id number] [facility] Start: 03-22-2024 Urine screening for protein Diabetes: Urine Protein Screening [facility] Start: 09-29-2023 End: 09-29-2024 Hemoglobin A1c measurement Hemoglobin A1c Lab Routine Type 2 diabetes mellitus with hyperglycemia, without long-term current use of insulin ([facility]) Expected: 09/29/2023 (Approximate), Expires: 09/29/2024 [facility] Work Phone: Comment on above: Expected: 09/29/2023 (Approximate), Expi res: 09/29/2024 Start: 04-28-2023 Influenza vaccination Influenza Vaccine (#1) [facility] Start: 08-18-2020 Hemoglobin A1c measurement Diabetes: Hemoglobin A1C [facility] Start: 04-28-2020 Influenza vaccination Flu vaccine (#1) [place] Start: 02-02-2020 Creatinine measurement Creatinine monitoring [place], [place] Start: 02-02-2020 HbA1c (Bld) [Mass fraction] A1C test (Diabetic or Prediabetic) [place] Start: 02-02-2020 Lipid panel Lipid screen [place], [place] Start: 02-02-2020 Potassium monitoring Potassium monitoring [place] Start: 02-17-2019 Annual Wellness Visit (AWV) Annual Wellness Visit (AWV) [place] Start: 2013 Screening for malignant neoplasm of breast Mammogram [facility] Start: 2003 Screening for malignant neoplasm of cervix [facility] Start: 1994 Screening for malignant neoplasm of cervix [facility] Start: 1992 DTaP/Tdap/Td vaccine (1 - Tdap) DTaP/Tdap/Td vaccine (1 - Tdap) [place] Start: 1991 Diabetic microalbuminuria test Diabetic microalbuminuria test [place] Start: 1988 HIV screening HIV screen [place] Start: 1983 Diabetic foot examination Diabetic foot exam [place] Start: 1983 Diabetic retinal exam Diabetic retinal exam [place], [place] Start: 1983 Glaucoma screening Diabetes: Retinopathy Screening [facility] Start: 1973 Medicare Annual Wellness (AWV) Medicare Annual Wellness (AWV) [facility] Start: 1973 Screening for malignant neoplasm of colon [facility] End: 05-19-2020 HbA1c (Bld) [Mass fraction] Hemoglobin A1C Lab Routine Once for 1 Occurrences starting 05/19/2020 until 05/19/2020 [place] Comment on above: Once for 1 Occurrences starting 05/19/20 until 05/19/2020 HbA1c (Bld) [Mass fraction] Hemoglobin A1C Lab Routine 05/19/2020 9:31 AM EDT [place] Immunizations Immunization Date Immunization Notes Care Provider Fa cility 08-03-2021 influenza virus vacc ine, unspecified formulation Alex De La O MD Work Phone: [facility] Payers Date Payer Category Payer Medicaid [place]ID [place] [facility] [id number] 2017-Present [phone] [address] [place] [address] Medicaid [id number] 2001 Medicare MEDICARE MEDICAR E PART B [id number] 2001-Present [address] [address] [place] [address] Medicare [id number] 1973 Unknown [id number] 1973 Unknown [id number] 1973 Unknown [id number] 1973 Unknown [id number] [id number] 1973 Unknown [id number] [id number] 1973 Unknown [id number] [id number] 1973 Unknown [id number] [id number] 1973 Unknown [id number] [id number] 1973 Unknown [id number] [id number] 1973 Unknown [id number] 1959 Medicaid [id number] 1959 Medicare [id number] Social History Date Type Detail Facility Start: 09-29-2015 End: 09-23-2023 Tobacco smoking status NHIS Never smoker [place] Start: 09-29-2015 Alcohol intake 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 Stick to ADA diet and limit carbs. Subjective Patient ID: Dago Rai is a 48 y.o. female who presents for Follow-up. F/u DM, edema, GERD, allergies, incontinence, and behavior. History of MR and lives in a intermediate. BS recently elevated around 150-180. Due for [...] hyperglycemia, without long-term current use of insulin ([facility]) - Primary Reports BS elevated and due for A1C. Stick to ADA diet and limit carbs. Relevant Orders Hemoglobin A1c Overactive bladder Worsening symptoms and possibly related to elevated BS. Increase oxybutynin. Relevant Medications oxybutynin XL (Ditropan-XL) 15 MG 24 hr tablet Seasonal allergic rhinitis due to pollen Memory loss of Increased forgetfulness and recommend discuss with psychiatry. documented in this encounter [facility] Evaluation note 09-13-2023 Note Date & [...] Other Vaginal yeast infection material was printed [facility] Other Evaluation note 05-10-2022 Note Date & [...] Apr, Left shoulder tendonitis (ICD-10 - M77.8) [facility] Other Evaluation note 03-29-2022 Note Date & [...] Mar, Left shoulder tendonitis (ICD-10 - M77.8) [facility] Other Evaluation note Note Date & Type Note Facility Evaluation note Diagnosis Type 2 diabetes mellitus with hyperglycemia, without long-term current use of insulin ([facility])- Primary Overactive bladder Hypertonicity of bladder Memory [...] Depression Medical History OAB Surgical History eyes [facility] Other Advance Directives No Advanced Directives Records FoundDocuments on File Type Date Recorded Patient Anodic Operator Expl anation ACP-Advance Directive ACP-Advance Directive 02/01/2019 10:30 AM ACP-Power of Verify Rep Summary Purpose Family History No Family History Records FoundNo Family History Records FoundNo Family History Records Found Additional Source Comments INFORMATION SOURCE (unrecogn ized section and content) DATE CREATED AUTHOR 05/21/2020 [facility] DATE CREATED AUTHOR AUTHOR'S ORGANIZ ATION 01/11/2023 [facility] DATE CREATED AUTHOR AUTHOR'S ORGANIZ ATION 03/30/2024 [facility] EPIC REASON FOR VISIT (unrecogniz ed section and content) Reason Comments Follow-up Care Teams (unrecognized sec tion and content) Purchasing And Claims Supervisor Relationship Specialty Start Date End Date Alex De La O MD [address] [place] [address] PCP - General Family Medicine 09/21/23 Purchasing And Claims Supervisor Relationship Specialty Start Date End Date Alex De La O MD [address] [place] [address] PCP - General Family Medicine 09/21/23 FOR [...] BE BASED ON THE PRIMARY CLINICAL RECORDS. [facility]. provides no warranty or guarantee of the accuracy or completeness of information in this document.
[2024-05-02 09:59] LABS: Basophils Percent Auto 0.5 % (0.2-2.0); Eosinophils Absolute Auto 0.2 10^3/uL (0.0-0.7); Eosinophils Percent Auto 2.7 % (0.9-7.0); Hematocrit 39.9 % (36.0-48.0); Immature Granulocytes Abs Auto 0.07 10^3/uL (0.00-0.03); Immature Granulocytes Pct Auto 1.1 % (0.0-0.5); Lymphocytes Absolute Auto 1.6 10^3/uL (1.2-3.8); Lymphocytes Percent Auto 23.8 % (20.5-60.0); Mean Corpuscular HGB Conc 32.6 g/dL (29.9-35.2); Mean Corpuscular Hemoglobin 28.2 pg (26.7-34.0); Mean Corpuscular Volume 86.6 fL (81.0-99.0); Mean Platelet Volume 9.9 fL (9.5-13.5); Monocytes Absolute Auto 0.4 10^3/uL (0.3-0.8); Monocytes Percent Auto 5.4 % (1.7-12.0); Neutrophils Absolute Auto 4.4 10^3/uL (1.4-6.5); Neutrophils Percent Auto 66.5 % (43.0-75.0); Platelet Count 241 10^3/uL (150-450); Red Blood Count 4.61 10^6/uL (4.20-5.40); Red Cell Distribution Width 13.7 % (11.0-15.0); White Blood Count 6.7 10^3/uL (4.0-11.0)
[2024-05-02 10:30] LABS: Microalbumin Urine Random <1.3 mg/dL (<=30.0)
[2024-05-02 11:02] LABS: Alanine Aminotransferase 31 U/L (14-59); Albumin Globulin Ratio 0.9; Albumin Level 3.3 g/dL (3.4-5.0); Alkaline Phosphatase 82 U/L (46-116); Aspartate Amino Transferase 21 U/L (15-37); Bilirubin Direct 0.1 mg/dL (0.0-0.2); Bilirubin Total 0.3 mg/dL (0.2-1.0); Calcium 9.5 mg/dL (8.5-10.1); Carbon Dioxide 24.2 mmol/L (21.0-32.0); Chloride 102 mmol/L (98-107); Chol HDL Ratio 3.2; Cholesterol 126 mg/dL (<=200); Estimated GFR (African America >60 (>=60); Estimated GFR (Non-African Ame >60 (>=60); Globulin 3.5 g/dL; Glucose 305 mg/dL (74-106); HDL Cholesterol 40 mg/dL (40-60); Potassium 4.2 mmol/L (3.5-5.1); Sodium 140 mmol/L (136-145); Thyroid Stimulating Hormone 2.583 uIU/mL (0.358-3.740); Total Protein 6.8 g/dL (6.4-8.2); Triglycerides 282 mg/dL (<=150); VLDL CHOLESTEROL 56.4 mg/dL
== END 2024-05-02 09:00 | disposition home or self-care (01) ==
LOC: MAMMO 08:59
PROVIDERS: PCP Family Medicine; Visit Provider Family Medicine
DX: E11.65 Type 2 diabetes mellitus with hyperglycemia (principal); Z79.899 Other long term (current) drug therapy; E66.01 Morbid (severe) obesity due to excess calories; Z12.31 Encounter for screening mammogram for malignant neoplasm of breast
CPT/HCPCS: 36415; 77063; 77067; 80048; 80061; 80076; 82043; 84443; 85025